=== PATIENT | female | born 1975 | race African-American/Black ===

== ENCOUNTER 2016-05-21 01:31 | Emergency (ER) | payer OTHER ==
[2016-05-21] MEDS ORDERED: Ketorolac Tromethamine 30 MG/ML VIAL ONE ×2 (02:13→02:40)
[2016-05-21] MEDS ORDERED: Promethazine HCl 25 MG/ML VIAL ONE (02:13)
[2016-05-21] MEDS ORDERED: diphenhydrAMINE HCl 50 MG/ML 1 ML VIAL ONE (02:13)
[2016-05-21] MEDS ORDERED: Insulin Regular 300 UNITS/3 ML VIAL ONE (02:31)
--- NOTE | 2016-05-21 03:29 | ERRECORD ---
[facility] EMERGENCY RECORD HPI HEADACHE (01:59 LLDO) CHIEF COMPLAINT: Patient presents for evaluation of headache, Patient presents for evaluation of migraine headache, same pattern and severity as her usual migraines. 5 days. started on left. n/v past 24 hours or more. photophobia. throbbing. HISTORIAN: History provided by patient. LOCATION: Symptoms are localized. QUALITY: Pain is dull in nature, described as aching, described as throbbing. SEVERITY: Maximum severity of symptoms severe, Currently symptoms are severe. TIME COURSE: Sudden onset of symptoms, There has been no change in the patient's symptoms over time, Symptoms are constant. ASSOCIATED WITH FEMALE: No associated symptoms, Denies any other complaints, ONLY ABOVE. EXACERBATED BY: Patient's condition exacerbated by eye opening, Patient's condition exacerbated by light. RELIEVED BY: Patient's condition relieved by dark room. RISK FACTORS: No subarachnoid hemorrhage risk factors, Subarachnoid hemorrahage risk factor analysis completed. ROS CONSTITUTIONAL: Historian reports fatigue, reports malaise. (02:02 LLDO) EYES: Historian reports photophobia. (02:02 LLDO) ENT: Negative ears, nose, throat review of systems, Historian denies epistaxis, denies rhinorrhea, denies sinus pain, denies sore throat. (02:04 LLDO) GI: Historian denies abdominal pain, reports anorexia, reports appetite changes, denies constipation, denies diarrhea, denies hematemesis, denies hematochezia, denies jaundice, denies melena, reports nausea, denies stool changes, reports vomiting. (02:02 LLDO) MUSCULOSKELETAL: Negative musculoskeletal review of systems, Historian denies arthralgias, denies back pain, denies injury, denies myalgias, denies neck pain. (02:04 LLDO) SKIN: Negative skin review of systems, Historian denies cellulitis, denies rash, denies skin changes, denies skin lesions. (02:04 LLDO) NEUROLOGIC: Historian denies confusion, denies dizziness, denies dysphasia, denies focal weakness, denies gait changes, reports headache, denies irritability, denies lethargy, denies mental status changes. (02:02 LLDO) HEMO/LYMPHATIC: Normal hematologic/lymphatic system review, Historian denies abnormal blood clotting, denies gum bleeding, denies petechiae. (02:04 LLDO) ALLERGIC/IMMUNOLOGIC: Normal allergy/immunologic system review, Historian denies eczema, denies environmental allergies, denies food allergies. (02:04 LLDO) PSYCHIATRIC: Negative psychiatric review of systems, Historian &a-1R&a+25V*p+0X*i0117L*c202B*c15G*c2P*p-0X&a-25V&a+1R Name: Shanna Rivera : 1975 F40 MedRec: [id number] AcctNum: [id number] Prepared: Christiano May 21, 2016 03:50 by Interface Page 1 of 4 pMD [facility] EMERGENCY RECORD denies alcohol abuse, denies anxiety, denies depression, denies drug abuse, denies hallucinations. (02:04 LLDO) NOTES: All systems reviewed, negative except as described above. (02:02 LLDO) PAST MEDICAL HISTORY MEDICAL HISTORY: Flu vaccine up to date, Tetanus immunization up to date, Pneumococcal vaccine not up to date, Notes: VERIFIED 03-07-16, Flu vaccine up to date, Tetanus immunization up to date, Pneumococcal vaccine not up to date, Past medical history includes history of diabetes, Type II, Past medical history includes neurological disease, migraine headaches, Past medical history includes history of diabetes, Type II, , Tetanus immunization up to date, Pneumococcal vaccine not up to date, Past medical history includes history of diabetes, Type II. VERIFIED 03-04-16. VERIFIED 03/18/16./no /2/16. VERIFIED 02/29/16. verified 05/10/16. reports no changes 05/21/16. (01:52 AGAN) FEMALE SURGICAL HISTORY: VERIFIED 03-07-16, Surgical history of hysterectomy, , Surgical history of section, Date of surgery 2002, Surgical history of hysterectomy, Date of surgery feb 18, 2015, Surgical history of tubal ligation, Date of surgery 2002, Patient has no surgical history, Surgical history of hysterectomy. VERIFIED 03/04/16. VERIFIED 03/18/16./no changes /03/22/16. VERIFIED 03/30/16. verified 05/10/16. reports no changes 05/21/16. (01:52 AGAN) PSYCHIATRIC HISTORY: DENIES BUT IS ALLEGIC TO PSYCH MEDICINES VERIFIED 03/30/16. (01:52 AGAN) SOCIAL HISTORY: Patient denies alcohol use, Patient denies drug use, Patient currently uses tobacco, smokes cigarettes, Patient smokes 1 pack per day, Social History includes VERIFIED 03-07-16, Patient denies alcohol use, Patient denies drug use, Patient currently uses tobacco, smokes cigarettes, daily, Patient smokes 1/2 packs per day, Patient denies alcohol use, Patient denies drug use, Patient currently uses tobacco, smokes cigarettes, Patient smokes 1/2 packs per day, Lives at home. VERIFIED 03/18/16./no changes/03/22/16. Reports no changes 05/21/16. (01:52 AGAN) NOTES: Nursing records reviewed, Agree with nursing records, Medication list reviewed. (02:04 LLDO) KNOWN ALLERGIES Compazine: Source: Patient Geodon: Source: Patient Imitrex: Source: Patient Reglan: Source: Patient Zofran oral: Source: Patient, - STOMACH CRAMPING CURRENT MEDICATIONS (01:41 AGAN) chwtipwjwg-ihkebrewkdeep-oofo: CAPSULE : Strength - 50 mg-325 mg-40 mg : ORAL Patient Dose: 1 tab(s) Oral every 4 hours prn. &a-1R&a+25V*p+0X*[id number]*c202B*c15G*c2P*p-0X&a-25V&a+1R Name: Shanna Rivera : 1975 F40 MedRec: [id number] AcctNum: [id number] Prepared: Christiano May 21, 2016 03:50 by Interface Page 2 of 4 pMD [facility] EMERGENCY RECORD VITAL SIGNS VITAL SIGNS: BP: 162/93, Pulse: 101, Resp: 20, Temp: 97.7 (Tympanic), Pain: 10 (Constant), O2 sat: 97% on Room Air, Time: 05/21/2016 01:35. (01:35 AGAN) BP: 140/75, Pulse: 99, Resp: 20, O2 sat: 97% on RA, Time: 05/21/2016 01:52. (01:52 AGAN) PHYSICAL EXAM CONSTITUTIONAL: Vital Signs Reviewed, Patient afebrile, Pulse normal, Blood pressure normal, Respiratory rate normal, Patient appears, uncomfortable, Patient appears, in severe pain distress, Patient alert and oriented to person, place and time, Nursing notes reviewed. (02:03 LLDO) HEAD: Head exam normal, Head exam included findings of head atraumatic, normocephalic. (02:04 LLDO) EYES: Eye exam included findings of eyelids normal to inspection, Pupils equally round and reactive to light, Extraocular muscles intact, Conjunctiva normal, Sclera normal, Fundoscopic exam normal. (02:03 LLDO) ENT: ENT exam normal, Ear exam normal, Nose exam normal. (02:04 LLDO) NECK: Neck exam included findings of normal range of motion, Trachea midline, Thyroid normal, no meningeal signs, no cervical adenopathy. (02:03 LLDO) RESPIRATORY CHEST: Respiratory exam included findings of no respiratory distress, Breath sounds clear, Chest exam included findings of chest movement symmetrical, Chest expansion equal, no tenderness. (02:03 LLDO) CARDIOVASCULAR: Cardiovascular exam included findings of heart rate regular rate and rhythm, Heart sounds normal. (02:03 LLDO) ABDOMEN FEMALE: Abdominal exam included findings of abdomen nontender, Bowel sounds normal, Liver normal, Spleen normal, no distension, no mass, no pulsatile masses, no peritoneal signs. (02:03 LLDO) BACK: Back exam normal, Back exam included findings of normal inspection, range of motion normal. (02:04 LLDO) UPPER EXTREMITY: Upper extremity exam normal, Upper extremity exam included findings of inspection normal, Range of motion normal. (02:04 LLDO) LOWER EXTREMITY: Lower extremity exam normal, Lower extremity exam included findings of inspection normal, Range of motion normal. (02:04 LLDO) NEURO: Sneads coma scale 15, Neuro exam findings include patient oriented to person, place and time, Speech normal, Gait normal, Memory normal, Cranial nerves intact, Deep tendon reflexes normal, no focal motor deficits, no focal sensory deficits, no cerebellar deficits, no nystagmus. (02:03 LLDO) SKIN: Skin exam normal, Skin exam included findings of skin warm, dry, and normal in color, no rash. (02:04 LLDO) &a-1R&a+25V*p+0X*q3236G*c202B*c15G*c2P*p-0X&a-25V&a+1R Name: Shanna Rivera : 1975 F40 MedRec: [id number] AcctNum: [id number] Prepared: Christiano May 21, 2016 03:50 by Interface Page 3 of 4 pMD [facility] EMERGENCY RECORD PSYCHIATRIC: Psychiatric exam normal, Psychiatric exam included findings of patient oriented to person place and time, Normal affect. (02:04 LLDO) MEDICATION ADMINISTRATION SUMMARY Drug Name: Toradol injection, Dose Ordered: 30 mg, Route: IV Push, Status: Given, Time: 02:35 05/21/2016, Drug Name: insulin regular pork, Dose Ordered: 6 units, Route: IV Push, Status: Given, Time: 02:35 05/21/2016, Drug Name: Phenergan injection, Dose Ordered: 50 mg, Route: IV Piggy Back, Status: Given, Time: 02:15 05/21/2016, Drug Name: Benadryl injection, Dose Ordered: 25 mg, Route: IV Push, Status: Given, Time: 02:10 05/21/2016, Drug Name: *sodium chloride 0.9 % intravenous, Dose Ordered: 1 L, Route: IV Fluid Infusion, Status: Given, Time: 02:10 05/21/2016, *Additional information available in notes, Detailed record available in Medication Service section. DOCTOR NOTES (03:19 LLDO) TEXT: feeling better and wants to go home and sleep. PROBLEM LIST No recorded problems DIAGNOSIS (03:20 LLDO) FINAL: PRIMARY: Migraine (unspecified). PRESCRIPTION (03:21 LLDO) Fioricet: TABLET : 50 mg-325 mg-40 mg : ORAL : Quantity: 2 Unit: tab(s) Route: ORAL Schedule: every 4 hours prn Dispense: 40 Unit: tab(s) May substitute. Refills: No Refills . NOTES: No Refills. DISPOSITION PATIENT: Disposition Type: Discharge, Disposition: *Discharge Home. (03:20 LLDO) Disposition Transport: Ambulatory, Condition: Good, Patient left the department. (03:47 AGAN) Brooks: GAURI=YIN Lane, Samir LLDO=MD Theresa, Codey &a-1R&a+25V*p+0X*[id number]*c202B*c15G*c2P*p-0X&a-25V&a+1R Name: Shanna Rivera : 1975 F40 MedRec: [id number] AcctNum: [id number] Prepared: Christiano May 21, 2016 03:50 by Interface Page 4 of 4 pMD MTDD
--- NOTE | 2016-05-21 03:35 | PICIS ---
[facility] EMERGENCY RECORD TRIAGE (FriMay 21, 2016 01:39 AGAN) TRIAGE NOTES: Headache, nausea, vomiting x 5 days. (FriMay 21, 2016 01:39 AGAN) PATIENT: NAME: Shanna Rivera, AGE: 40, GENDER: female, : Fri1975, TIME OF GREET: FriMay 21, 2016 01:32, PREFERRED LANGUAGE: Lao, ETHNICITY: Not or , HIGH ALERT: HIGH ALERT 3, FALL RISK: NO, ECODE BILLING MAP: [facility], SSN: [id number], Zip Code: [address], KG WEIGHT: 70.31, PHONE: CELL, , , PERSON ID: [id number], PCP: Dr. jw goode. (FriMay 21, 2016 01:39 AGAN) COMPLAINT: NAUSEA, MIGRAINE, DEHYDRATION. (FriMay 21, 2016 01:39 AGAN) ADMISSION: URGENCY: 4 Non Urgent, ADMISSION SOURCE: Home, TRANSPORT: CAR, BED: ED -05. (FriMay 21, 2016 01:39 AGAN) ASSESSMENT: Assessment: Ambulatory c/o headaches, nausea and vomiting x 5 days now, Symptoms began 5 days ago. (01:52 AGAN) PAIN: Patient complains of pain described as, on a scale 0-10 patient rates pain as 10, Location Head...did not mention any other parts of the body, Pain is constant. (01:52 AGAN) PROVIDERS: TRIAGE NURSE: Samir Lane RN. (FriMay 21, 2016 01:39 AGAN) VITAL SIGNS: BP 162/93, Pulse 101, Resp 20, Temp 97.7, (Tympanic), Pain 10, (Constant), O2 Sat 97%, on Room Air, Time 05/21/2016 01:35. (01:35 AGAN) PREVIOUS VISIT ALLERGIES: Compazine, Geodon, Imitrex, Reglan, Zofran oral. (FriMay 21, 2016 01:39 AGAN) Compazine, Geodon, Imitrex, Reglan, Zofran oral. (01:52 AGAN) KNOWN ALLERGIES Compazine: Source: Patient Geodon: Source: Patient Imitrex: Source: Patient Reglan: Source: Patient Zofran oral: Source: Patient, - STOMACH CRAMPING CURRENT MEDICATIONS (01:41 AGAN) cchshyzddg-yykulqhxbyqhf-zekw: CAPSULE : Strength - 50 mg-325 mg-40 mg : ORAL Patient Dose: 1 tab(s) Oral every 4 hours prn. VITAL SIGNS VITAL SIGNS: BP: 162/93, Pulse: 101, Resp: 20, Temp: 97.7 (Tympanic), Pain: 10 (Constant), O2 sat: 97% on Room Air, Time: 05/21/2016 01:35. (01:35 AGAN) BP: 140/75, Pulse: 99, Resp: 20, O2 sat: 97% on RA, Time: 05/21/2016 01:52. (01:52 AGAN) NURSING ASSESSMENT: HEADACHE (01:39 AGAN) &a-1R&a+25V*p+0X*h3598W*c202B*c15G*c2P*p-0X&a-25V&a+1R Name: Shanna Rivera : 1975 F40 MedRec: [id number] AcctNum: [id number] Prepared: Christiano May 21, 2016 03:56 by Interface Page 1 of 11 pMD [facility] EMERGENCY RECORD CONSTITUTIONAL: Patient arrives ambulatory, Gait steady, History obtained from patient, Patient appears comfortable, Patient cooperative, Patient alert, Oriented to person, place and time, Skin warm, Skin dry, Skin normal in color, Mucous membranes pink, Mucous membranes moist, Patient, poorly groomed, Patient complains of headaches, nausea, vomiting x 5 days. PAIN: pressure pain, head...coming from the left side and going to the right side, Onset of pain 5 days ago, on a scale 0-10 patient rates pain as 10. HEADACHE: history of migraines, Associated with nausea, Associated with vomiting, Associated with photophobia. NEURO: Pupils equally round and reactive to light, Associated with nausea, Associated with vomiting, history, reported only. ENT: Ear assessment findings include ear normal to inspection, Nasal assessment findings include nose normal to inspection, Associated with headache. SAFETY: Side rails up, Cart/Stretcher in lowest position, Family at bedside, Call light within reach, Hospital ID band on. NURSING PROCEDURE: DISCHARGE NOTE (03:25 AGAN) DISCHARGE: Patient discharged to home, ambulating without assistance, family driving, accompanied by //partner, Summary of Care printed/ provided, Patient requested and was provided an electronic copy of Discharge Instructions, Transition record given to patient, Discharge instructions given to patient, Prescriptions given and instructions on side effects given, Name of prescription(s) given: Fioricet, Above person(s) verbalized understanding of discharge instructions and follow-up care, Patient discharged by, Dr. Cardenas, Patient instructed not to drive home, Patient treated and evaluated by physician. BELONGINGS: Belongings remain with patient, Valuables remain with patient. NURSING PROCEDURE: IV PATIENT IDENITIFIER: Patient actively involved in identification process, Patient's identity verified by patient stating name, Patient's identity verified by patient stating date. (02:00 AGAN) IV SITE 1: IV therapy indicated for hydration, IV therapy indicated for medication administration, IV established, to the right hand, using a 22 gauge catheter, in one attempt, Saline lock established. (02:00 AGAN) FOLLOW-UP SITE 1: After procedure, 2x2 dressing applied, IV discontinued, due to patient being discharged, catheter intact. (03:25 AGAN) NURSING PROCEDURE: NURSE NOTES NURSES NOTES: Patient in no apparent distress, Warm blanket given &a-1R&a+25V*p+0X*p7514O*c202B*c15G*c2P*p-0X&a-25V&a+1R Name: Shanna Rivera : 1975 F40 MedRec: [id number] AcctNum: [id number] Prepared: Christiano May 21, 2016 03:56 by Interface Page 2 of 11 pMD [facility] EMERGENCY RECORD to patient, Patient examined by physician. (01:52 AGAN) Patient in no apparent distress, Patient states decreased pain, Notes: ambulating ad juan r and verbalizing she feeling good now... removed all her monitors...see imaged vs sheet. (03:00 AGAN) VITAL SIGNS: BP: 140, / 75, Pulse: 99, Resp: 20, O2 sat: 97%, on: RA. (01:52 AGAN) ORDER DETAILS Order Name: BLOOD GLUCOSE MONITOR, Status: Done, Time: 02:42 05/21/2016, User: GAURI, - Ordered for: MD Cardenas Lloyd, - Entered by: MD Cardenas Lloyd - nas May 21, 2016 02:08, - Quantity: 1, Order Name: ERRT Oxygen Usage ER, Status: Active, Time: 01:55 05/21/2016, User: BRYAN, - Ordered for: MD Cardenas Lloyd, - Entered by: MD Cardenas Lloyd - nas May 21, 2016 01:55, - Quantity: 1, Order Name: SALINE LOCK, Status: Done, Time: 02:42 05/21/2016, User: GAURI, - Ordered for: MD Cardenas Lloyd, - Entered by: MD Cardenas Lloyd - nas May 21, 2016 01:55, - Quantity: 1. MEDICATION ADMINISTRATION SUMMARY Drug Name: Toradol injection, Dose Ordered: 30 mg, Route: IV Push, Status: Given, Time: 02:35 05/21/2016, Drug Name: insulin regular pork, Dose Ordered: 6 units, Route: IV Push, Status: Given, Time: 02:35 05/21/2016, Drug Name: Phenergan injection, Dose Ordered: 50 mg, Route: IV Piggy Back, Status: Given, Time: 02:15 05/21/2016, Drug Name: Benadryl injection, Dose Ordered: 25 mg, Route: IV Push, Status: Given, Time: 02:10 05/21/2016, Drug Name: *sodium chloride 0.9 % intravenous, Dose Ordered: 1 L, Route: IV Fluid Infusion, Status: Given, Time: 02:10 05/21/2016, *Additional information available in notes, Detailed record available in Medication Service section. MEDICATION SERVICE Benadryl injection: Order: Benadryl injection (diphenhydramine HCl) - Dose: 25 mg : IV Push Schedule: Now Ordered by: Codey Cardenas MD Entered by: Codey Cardenas MD FriMay 21, 2016 01:58 , Acknowledged by: Samir Lane RN FriMay 21, 2016 02:10 Documented as given by: Samir Lane RN FriMay 21, 2016 02:10 Patient, Medication, Dose, Route and Time verified prior to administration. &a-1R&a+25V*p+0X*l1203S*c202B*c15G*c2P*p-0X&a-25V&a+1R Name: Shanna Rivera : 1975 F40 MedRec: [id number] AcctNum: [id number] Prepared: FriMay 21, 2016 03:56 by Interface Page 3 of 11 pMD [facility] EMERGENCY RECORD Amount given: 25 mg, IV SITE #1 IVP, initial medication, Slowly, Patient tolerated procedure well. : Follow Up : Response assessment performed, No signs or symptoms of allergic reaction noted, Decreased symptoms, _IV SITE #1:_. (02:15 AGAN) insulin regular pork: Order: insulin regular pork (insulin,pork) - Dose: 6 units : IV Push Schedule: Now Ordered by: Codey Cardenas MD Entered by: Codey Cardenas MD May 21, 2016 02:15 , Acknowledged by: Samir Lane RN May 21, 2016 02:25 Documented as given by: Samir Lane RN [facility] May 21, 2016 02:35 Patient, Medication, Dose, Route and Time verified prior to administration. Amount given: 6 units, IV SITE #1 IVP, initial medication, Slowly, Catheter placement confirmed via flush prior to administration, IV site without signs or symptoms of infiltration during medication administration, No swelling during administration, No drainage during administration, IV flushed after administration, Correct patient, time, route, dose and medication confirmed prior to administration, Patient advised of actions and side-effects prior to administration, Allergies confirmed and medications reviewed prior to administration, Patient tolerated procedure well, Co-signed by: Rufino Harris RN May 21, 2016 02:44, Co-signed by: Rufino Harris RN [facility] May 21, 2016 02:44, Co-signed by: Rufino Harris RN [facility] May 21, 2016 02:44, Co-signed by: Rufino Harris RN [facility] May 21, 2016 02:44, Co-signed by: Rufino Harris RN [facility] May 21, 2016 02:44, Co-signed by: Rufino Harris RN [facility] May 21, 2016 02:44, Co-signed by: YIN Alatorre May 21, 2016 02:44, Co-signed by: YIN Alatorre May 21, 2016 02:44, Co-signed by: YIN Alatorre May 21, 2016 02:44. : Follow Up : Response assessment performed, No signs or symptoms of allergic reaction noted, _IV SITE #1:_, Ambulatory no acute distress and wanting to go home now. (03:25 AGAN) insulin regular pork: Order: insulin regular pork (insulin,pork) - Dose: 6 units : IV Push Schedule: Now Ordered by: Codey Cardensa MD Entered by: MD Christiano Lazaro May 21, 2016 02:15 , Acknowledged by: Samir Lane RN nas May 21, 2016 02:25 Documented as given by: YIN Larson May 21, 2016 02:35 Patient, Medication, Dose, Route and Time verified prior to administration. Amount given: 6 units, IV SITE #1 IVP, initial medication, Slowly, Catheter placement confirmed via flush prior to administration, IV site without signs or symptoms of infiltration during medication administration, No swelling during administration, No drainage during administration, IV flushed after administration, Correct patient, time, route, dose and medication confirmed prior to administration, &a-1R&a+25V*p+0X*w1729Q*c202B*c15G*c2P*p-0X&a-25V&a+1R Name: Shanna Rivera : 1975 F40 MedRec: [id number] AcctNum: [id number] Prepared: FriMay 21, 2016 03:56 by Interface Page 4 of 11 pMD [facility] EMERGENCY RECORD Patient advised of actions and side-effects prior to administration, Allergies confirmed and medications reviewed prior to administration, Patient tolerated procedure well, Co-signed by: YIN Alatorre May 21, 2016 02:44, Co-signed by: YIN Alatorre May 21, 2016 02:44, Co-signed by: YIN Alatorre May 21, 2016 02:44, Co-signed by: YIN Alatorre May 21, 2016 02:44, Co-signed by: Rufino Harris RN nas May 21, 2016 02:44, Co-signed by: Rufino Harris RN nas May 21, 2016 02:44, Co-signed by: Rufino Harris RN [facility] May 21, 2016 02:44, Co-signed by: Rufino Harris RN nas May 21, 2016 02:44, Co-signed by: Rufino Harris RN nas May 21, 2016 02:45. insulin regular pork: Order: insulin regular pork (insulin,pork) - Dose: 6 units : IV Push Schedule: Now Ordered by: Codey Cardenas MD Entered by: Codey Cardenas MD [facility] May 21, 2016 02:15 , Acknowledged by: Samir Lane RN May 21, 2016 02:25 Documented as given by: Samir Lane RN [facility] May 21, 2016 02:35 Patient, Medication, Dose, Route and Time verified prior to administration. Amount given: 6 units, IV SITE #1 IVP, initial medication, Slowly, Catheter placement confirmed via flush prior to administration, IV site without signs or symptoms of infiltration during medication administration, No swelling during administration, No drainage during administration, IV flushed after administration, Correct patient, time, route, dose and medication confirmed prior to administration, Patient advised of actions and side-effects prior to administration, Allergies confirmed and medications reviewed prior to administration, Patient tolerated procedure well, Co-signed by: uRfino Harris RN [facility] May 21, 2016 02:44, Co-signed by: Rufino Harris RN [facility] May 21, 2016 02:44, Co-signed by: Rufino Harris RN [facility] May 21, 2016 02:44, Co-signed by: Rufino Harris RN nas May 21, 2016 02:44, Co-signed by: Rufino Harris RN nas May 21, 2016 02:44, Co-signed by: Rufino Harris RN [facility] May 21, 2016 02:44, Co-signed by: Rufino Harris RN nas May 21, 2016 02:44, Co-signed by: Rufino Harris RN nas May 21, 2016 02:44, Co-signed by: Rufino Harris RN [facility] May 21, 2016 02:44, Co-signed by: Rufino Harris RN nas May 21, 2016 02:44, Co-signed by: Rufino Harris RN nas May 21, 2016 02:44. insulin regular pork: Order: insulin regular pork (insulin,pork) - Dose: 6 units : IV Push Schedule: Now Ordered by: Codey Cardenas MD Entered by: Codey Carednas MD nas May 21, 2016 02:15 , Acknowledged by: Samir Lane RN [facility] May 21, 2016 02:25 Documented as given by: Samir Lane RN nas May 21, 2016 02:35 Patient, Medication, Dose, Route and Time verified prior to administration. &a-1R&a+25V*p+0X*a3739Q*c202B*c15G*c2P*p-0X&a-25V&a+1R Name: Shanna Rivera : 1975 F40 MedRec: [id number] AcctNum: [id number] Prepared: FriMay 21, 2016 03:56 by Interface Page 5 of 11 pMD [facility] EMERGENCY RECORD Amount given: 6 units, IV SITE #1 IVP, initial medication, Slowly, Catheter placement confirmed via flush prior to administration, IV site without signs or symptoms of infiltration during medication administration, No swelling during administration, No drainage during administration, IV flushed after administration, Correct patient, time, route, dose and medication confirmed prior to administration, Patient advised of actions and side-effects prior to administration, Allergies confirmed and medications reviewed prior to administration, Patient tolerated procedure well, Co-signed by: Rufino Harris RN nas May 21, 2016 02:44, Co-signed by: Rufino Harris RN nas May 21, 2016 02:44, Co-signed by: Rufino Harris RN nas May 21, 2016 02:44, Co-signed by: Rufino aHrris RN nas May 21, 2016 02:44, Co-signed by: YIN Alatorre May 21, 2016 02:44, Co-signed by: YIN Alatorre May 21, 2016 02:44, Co-signed by: Rufino Harris RN nas May 21, 2016 02:44, Co-signed by: Rufino Harris RN May 21, 2016 02:44, Co-signed by: Rufino Harris RN May 21, 2016 02:44, Co-signed by: Rufino Harris RN May 21, 2016 02:44, Co-signed by: Rufino Harris RN [facility] May 21, 2016 02:44. Phenergan injection: Order: Phenergan injection (promethazine HCl) - Dose: 50 mg : IV Piggy Back POTENTIAL ALLERGY REACTION: 'Compazine [prochlorperazine/prochlorperazine edisylate]' - Reviewed with patient, pt says can safely take this medicine Schedule: Now Ordered by: Codey Cardenas MD Entered by: Codey Cardenas MD [facility] May 21, 2016 01:58 , Acknowledged by: Samir Lane RN [facility] May 21, 2016 02:10 Documented as given by: Samir Lane RN [facility] May 21, 2016 02:15 Patient, Medication, Dose, Route and Time verified prior to administration. Amount given: 50 mg, IV SITE #1 IVPB or drip, initial infusion, IVPB mixed in: ordered 1L NS IV bolus, via primary tubing, on an IV pump, Awake and alert- acceptable, Catheter placement confirmed via flush prior to administration, IV site without signs or symptoms of infiltration during medication administration, No swelling during administration, No drainage during administration, IV flushed after administration, Correct patient, time, route, dose and medication confirmed prior to administration, Patient advised of actions and side-effects prior to administration, Allergies confirmed and medications reviewed prior to administration, Patient tolerated procedure well. sodium chloride 0.9 % intravenous: Order: sodium chloride 0.9 % intravenous (0.9 % sodium chloride) - Dose: 1 L : IV Fluid Infusion Notes: (Bolus) after bolus, lock Ordered by: Codey Cardenas MD Entered by: Codey Cardenas MD [facility] May 21, 2016 01:56 , Acknowledged by: Samir Lane RN [facility] May 21, 2016 02:10 &a-1R&a+25V*p+0X*w3117T*c202B*c15G*c2P*p-0X&a-25V&a+1R Name: Shanna Rivera: 1975 F40 MedRec: [id number] AcctNum: [id number] Prepared: FriMay 21, 2016 03:56 by Interface Page 6 of 11 pMD [facility] EMERGENCY RECORD Documented as given by: Samir Lane RN FriMay 21, 2016 02:10 Patient, Medication, Dose, Route and Time verified prior to administration. Amount given: 1000 ml, IV SITE #1 IV fluids established for hydration, IV SITE #1 into right hand, IV SITE #1 1st bag hung, amount 1 Liter hung, IV SITE #1 bolus of 1000 ml established, via primary tubing, IV SITE #1 on IV pump, Awake and alert- acceptable, Patient tolerated procedure well, Patient in position of comfort, Side rails up, Cart in lowest position, Family at bedside. : Follow Up : Response assessment performed, No signs or symptoms of allergic reaction noted, Decreased pain, _IV SITE #1:_, IV fluid infusion discontinued, on FriMay 21, 2016 03:25, Total fluid hydration time IV site 1 1 hour, 15 minutes, ., Total amount infused: 1000 ml, IV Discontinued with catheter intact. (03:25 AGAN) Toradol injection: Order: Toradol injection (ketorolac tromethamine) - Dose: 30 mg : IV Push Schedule: Now Ordered by: Codey Cardenas MD Entered by: Codey Cardenas MD FriMay 21, 2016 01:58 , Acknowledged by: Samir Lane RN FriMay 21, 2016 02:10 Documented as given by: Samir Lane RN FriMay 21, 2016 02:35 Patient, Medication, Dose, Route and Time verified prior to administration. Amount given: 30 mg, IV SITE #1 IVP, initial medication, Slowly. : Follow Up : Response assessment performed, No signs or symptoms of allergic reaction noted, Decreased pain, Decreased symptoms, _IV SITE #1:_. (03:00 AGAN) HPI HEADACHE (01:59 LLDO) CHIEF COMPLAINT: Patient presents for evaluation of headache, Patient presents for evaluation of migraine headache, same pattern and severity as her usual migraines. 5 days. started on left. n/v past 24 hours or more. photophobia. throbbing. HISTORIAN: History provided by patient. LOCATION: Symptoms are localized. QUALITY: Pain is dull in nature, described as aching, described as throbbing. SEVERITY: Maximum severity of symptoms severe, Currently symptoms are severe. TIME COURSE: Sudden onset of symptoms, There has been no change in the patient's symptoms over time, Symptoms are constant. ASSOCIATED WITH FEMALE: No associated symptoms, Denies any other complaints, ONLY ABOVE. EXACERBATED BY: Patient's condition exacerbated by eye opening, Patient's condition exacerbated by light. RELIEVED BY: Patient's condition relieved by dark room. RISK FACTORS: No subarachnoid hemorrhage risk factors, Subarachnoid hemorrahage risk factor analysis completed. &a-1R&a+25V*p+0X*d9352U*c202B*c15G*c2P*p-0X&a-25V&a+1R Name: Shanna Rivera : 1975 F40 MedRec: [id number] AcctNum: [id number] Prepared: Christiano May 21, 2016 03:56 by Interface Page 7 of 11 pMD [facility] EMERGENCY RECORD ROS CONSTITUTIONAL: Historian reports fatigue, reports malaise. (02:02 LLDO) EYES: Historian reports photophobia. (02:02 LLDO) ENT: Negative ears, nose, throat review of systems, Historian denies epistaxis, denies rhinorrhea, denies sinus pain, denies sore throat. (02:04 LLDO) GI: Historian denies abdominal pain, reports anorexia, reports appetite changes, denies constipation, denies diarrhea, denies hematemesis, denies hematochezia, denies jaundice, denies melena, reports nausea, denies stool changes, reports vomiting. (02:02 LLDO) MUSCULOSKELETAL: Negative musculoskeletal review of systems, Historian denies arthralgias, denies back pain, denies injury, denies myalgias, denies neck pain. (02:04 LLDO) SKIN: Negative skin review of systems, Historian denies cellulitis, denies rash, denies skin changes, denies skin lesions. (02:04 LLDO) NEUROLOGIC: Historian denies confusion, denies dizziness, denies dysphasia, denies focal weakness, denies gait changes, reports headache, denies irritability, denies lethargy, denies mental status changes. (02:02 LLDO) HEMO/LYMPHATIC: Normal hematologic/lymphatic system review, Historian denies abnormal blood clotting, denies gum bleeding, denies petechiae. (02:04 LLDO) ALLERGIC/IMMUNOLOGIC: Normal allergy/immunologic system review, Historian denies eczema, denies environmental allergies, denies food allergies. (02:04 LLDO) PSYCHIATRIC: Negative psychiatric review of systems, Historian denies alcohol abuse, denies anxiety, denies depression, denies drug abuse, denies hallucinations. (02:04 LLDO) NOTES: All systems reviewed, negative except as described above. (02:02 LLDO) PAST MEDICAL HISTORY MEDICAL HISTORY: Flu vaccine up to date, Tetanus immunization up to date, Pneumococcal vaccine not up to date, Notes: VERIFIED 03-07-16, Flu vaccine up to date, Tetanus immunization up to date, Pneumococcal vaccine not up to date, Past medical history includes history of diabetes, Type II, Past medical history includes neurological disease, migraine headaches, Past medical history includes history of diabetes, Type II, , Tetanus immunization up to date, Pneumococcal vaccine not up to date, Past medical history includes history of diabetes, Type II. VERIFIED 03-04-16. VERIFIED 03/18/16./no omnavlt45/2/16. VERIFIED 02/29/16. verified 05/10/16. reports no changes 05/21/16. (01:52 AGAN) FEMALE SURGICAL HISTORY: VERIFIED 03-07-16, Surgical history of hysterectomy, , Surgical history of section, Date of surgery 2002, Surgical history of hysterectomy, Date of surgery feb 18, 2015, Surgical history of tubal ligation, Date of surgery &a-1R&a+25V*p+0X*x8339O*c202B*c15G*c2P*p-0X&a-25V&a+1R Name: Shanna Rivera : 1975 F40 MedRec: [id number] AcctNum: [id number] Prepared: Christiano May 21, 2016 03:56 by Interface Page 8 of 11 pMD [facility] EMERGENCY RECORD 2002, Patient has no surgical history, Surgical history of hysterectomy. VERIFIED 03/04/16. VERIFIED 03/18/16./no changes /03/22/16. VERIFIED 03/30/16. verified 05/10/16. reports no changes 05/21/16. (01:52 AGAN) PSYCHIATRIC HISTORY: DENIES BUT IS ALLEGIC TO PSYCH MEDICINES VERIFIED 03/30/16. (01:52 AGAN) SOCIAL HISTORY: Patient denies alcohol use, Patient denies drug use, Patient currently uses tobacco, smokes cigarettes, Patient smokes 1 pack per day, Social History includes VERIFIED 03-07-16, Patient denies alcohol use, Patient denies drug use, Patient currently uses tobacco, smokes cigarettes, daily, Patient smokes 1/2 packs per day, Patient denies alcohol use, Patient denies drug use, Patient currently uses tobacco, smokes cigarettes, Patient smokes 1/2 packs per day, Lives at home. VERIFIED 03/18/16./no changes/03/22/16. Reports no changes 05/21/16. (01:52 AGAN) NOTES: Nursing records reviewed, Agree with nursing records, Medication list reviewed. (02:04 LLDO) PHYSICAL EXAM CONSTITUTIONAL: Vital Signs Reviewed, Patient afebrile, Pulse normal, Blood pressure normal, Respiratory rate normal, Patient appears, uncomfortable, Patient appears, in severe pain distress, Patient alert and oriented to person, place and time, Nursing notes reviewed. (02:03 LLDO) HEAD: Head exam normal, Head exam included findings of head atraumatic, normocephalic. (02:04 LLDO) EYES: Eye exam included findings of eyelids normal to inspection, Pupils equally round and reactive to light, Extraocular muscles intact, Conjunctiva normal, Sclera normal, Fundoscopic exam normal. (02:03 LLDO) ENT: ENT exam normal, Ear exam normal, Nose exam normal. (02:04 LLDO) NECK: Neck exam included findings of normal range of motion, Trachea midline, Thyroid normal, no meningeal signs, no cervical adenopathy. (02:03 LLDO) RESPIRATORY CHEST: Respiratory exam included findings of no respiratory distress, Breath sounds clear, Chest exam included findings of chest movement symmetrical, Chest expansion equal, no tenderness. (02:03 LLDO) CARDIOVASCULAR: Cardiovascular exam included findings of heart rate regular rate and rhythm, Heart sounds normal. (02:03 LLDO) ABDOMEN FEMALE: Abdominal exam included findings of abdomen nontender, Bowel sounds normal, Liver normal, Spleen normal, no distension, no mass, no pulsatile masses, no peritoneal signs. (02:03 LLDO) BACK: Back exam normal, Back exam included findings of normal inspection, range of motion normal. (02:04 LLDO) UPPER EXTREMITY: Upper extremity exam normal, Upper extremity exam included findings of inspection normal, Range of motion normal. (02:04 LLDO) &a-1R&a+25V*p+0X*k6029F*c202B*c15G*c2P*p-0X&a-25V&a+1R Name: Shanna Rivera : 1975 F40 MedRec: [id number] AcctNum: [id number] Prepared: Christiano May 21, 2016 03:56 by Interface Page 9 of 11 pMD [facility] EMERGENCY RECORD LOWER EXTREMITY: Lower extremity exam normal, Lower extremity exam included findings of inspection normal, Range of motion normal. (02:04 LLDO) NEURO: [place] coma scale 15, Neuro exam findings include patient oriented to person, place and time, Speech normal, Gait normal, Memory normal, Cranial nerves intact, Deep tendon reflexes normal, no focal motor deficits, no focal sensory deficits, no cerebellar deficits, no nystagmus. (02:03 LLDO) SKIN: Skin exam normal, Skin exam included findings of skin warm, dry, and normal in color, no rash. (02:04 LLDO) PSYCHIATRIC: Psychiatric exam normal, Psychiatric exam included findings of patient oriented to person place and time, Normal affect. (02:04 LLDO) EVENTS TRANSFER: Triage to Emergency Main ED -05. (01:39 AGAN) Removed from Emergency Main ED -05. (03:47 AGAN) DOCTOR NOTES (03:19 LLDO) TEXT: feeling better and wants to go home and sleep. PROBLEM LIST No recorded problems DIAGNOSIS (03:20 LLDO) FINAL: PRIMARY: Migraine (unspecified). DISPOSITION PATIENT: Disposition Type: Discharge, Disposition: *Discharge Home. (03:20 LLDO) Disposition Transport: Ambulatory, Condition: Good, Patient left the department. (03:47 AGAN) INSTRUCTION (03:20 LLDO) DISCHARGE: MIGRAINE HEADACHE. FOLLOWUP: Follow up with Primary Care Physician as scheduled. SPECIAL: Follow-up with your PCP. PRESCRIPTION (03:21 LLDO) Fioricet: TABLET : 50 mg-325 mg-40 mg : ORAL : Quantity: 2 Unit: tab(s) Route: ORAL Schedule: every 4 hours prn Dispense: 40 Unit: tab(s) May substitute. Refills: No Refills . NOTES: No Refills. IMAGING (03:48 AGAN) *DISCHARGE INSTRUCTIONS RECEIPT: Image captured from scanner. *SUPPLY CHARGE SHEET: Image captured from scanner. VITAL SIGNS: Image captured from scanner. &a-1R&a+25V*p+0X*q2966L*c202B*c15G*c2P*p-0X&a-25V&a+1R Name: Shanna Rivera : 1975 [facility] MedRec: [id number] AcctNum: [id number] Prepared: FriMay 21, 2016 03:56 by Interface Page 10 of 11 D [facility] EMERGENCY RECORD ADMIN (03:22 LLDO) DIGITAL SIGNATURE: MD Cardenas Lloyd. Brooks: AGAN=YIN Lane, Samir LLDO=MD Cardenas Lloyd &a-1R&a+25V*p+0X*x1229Y*c202B*c15G*c2P*p-0X&a-25V&a+1R Name: Shanna Rivera : 1975 1 MedRec: [id number] AcctNum: [id number] Prepared: FriMay 21, 2016 03:56 by Interface Page 11 of 11 D [facility] MEDICATION RECONCILIATION You were seen in the Emergency Department on: FriMay 21, 2016 KNOWN ALLERGIES Compazine: Source: Patient Geodon: Source: Patient Imitrex: Source: Patient Reglan: Source: Patient Zofran oral: Source: Patient, - STOMACH CRAMPING MEDICATIONS GIVEN WHILE IN THE EMERGENCY DEPARTMENT sodium chloride 0.9 % intravenous (0.9 % sodium chloride) - Dose: 1 liter(s) : IV Fluid Infusion Phenergan injection (promethazine HCl) - Dose: 50 milligram(s) : IV Piggy Back Toradol injection (ketorolac tromethamine) - Dose: 30 milligram(s) : IV Push Benadryl injection (diphenhydramine HCl) - Dose: 25 milligram(s) : IV Push insulin regular pork (insulin,pork) - Dose: 6 unit(s) : IV Push HOME MEDICATIONS CONTINUE PRESCRIBED feojruhgnj-[id number] : CAPSULE : Strength - 50 mg-325 mg-40 mg : ORAL Continue as prescribed Patient had been takin tab(s) Oral every 4 hours prn. Notes from the emergency department Reviewed with family Reviewed with patient Reviewed with family Reviewed with patient PRESCRIPTIONS (1) &a-1R&a+25V*p+0X*k4677F*c202B*c15G*c2P*p-0X&a-25V&a+1R Name: Shanna Rivera : 1975 F40 MedRec: [id number] AcctNum: [id number] Prepared: Christiano May 21, 2016 03:56 by Interface pMJovan BECK
[2016-05-21] MEDS ORDERED: Sodium Chloride 0.9% 1,000 ML BAG ONE (10:36)
== END 2016-05-21 03:25 | disposition home or self-care (01) ==
LOC: MADERS 01:31
DX: G43.909 Migraine, unspecified, not intractable, without status migrainosus (principal); E11.9 Type 2 diabetes mellitus without complications; F17.210 Nicotine dependence, cigarettes, uncomplicated
CPT/HCPCS: 36416; 96365; 96375; J1200; J1815; J1885; J2550; J7050

== ENCOUNTER 2016-06-21 14:48 | Emergency (ER) | payer MEDICAID, OTHER, SELFPAY | END 2016-06-21 16:03 | disposition home or self-care (01) | LOC: MADERS 14:48 | DX: G43.909 Migraine, unspecified, not intractable, without status migrainosus (principal); E11.9 Type 2 diabetes mellitus without complications; F17.210 Nicotine dependence, cigarettes, uncomplicated; Z79.84 Long term (current) use of oral hypoglycemic drugs | CPT/HCPCS: 99283 ==

== ENCOUNTER 2016-06-27 00:59 | Emergency (ER) | payer MEDICAID, SELFPAY ==
[2016-06-27] MEDS ORDERED: Ketorolac Tromethamine 30 MG/ML VIAL ONE (02:08)
[2016-06-27] MEDS ORDERED: diphenhydrAMINE HCl 50 MG/ML 1 ML VIAL ONE ×2 (02:08)
[2016-06-27] MEDS ORDERED: Promethazine HCl 25 MG/ML VIAL ONE (02:08)
[2016-06-27] MEDS ORDERED: Sodium Chloride 0.9% 1,000 ML BAG ONE (07:37)
== END 2016-06-27 03:34 | disposition home or self-care (01) ==
LOC: MADERS 00:59
DX: G43.909 Migraine, unspecified, not intractable, without status migrainosus (principal); E11.9 Type 2 diabetes mellitus without complications; F17.210 Nicotine dependence, cigarettes, uncomplicated; Z79.84 Long term (current) use of oral hypoglycemic drugs
CPT/HCPCS: 36416; 96361; 96374; 96375; J1200; J1885; J2550; J7050

== ENCOUNTER 2016-07-17 07:49 | Emergency (ER) | payer MEDICAID, SELFPAY ==
[2016-07-17] MEDS ORDERED: Famotidine 20 MG TAB ONE (08:06)
== END 2016-07-17 08:33 | disposition home or self-care (01) ==
LOC: MADERS 07:49
DX: E11.65 Type 2 diabetes mellitus with hyperglycemia (principal); G43.909 Migraine, unspecified, not intractable, without status migrainosus; F17.210 Nicotine dependence, cigarettes, uncomplicated; Z79.84 Long term (current) use of oral hypoglycemic drugs
CPT/HCPCS: 36416; 99284

== ENCOUNTER 2016-07-27 00:03 | Emergency (ER) | payer MEDICAID, SELFPAY | END 2016-07-27 00:15 | disposition left against medical advice (07) | LOC: MADERS 00:03 | DX: Z53.21 Procedure and treatment not carried out due to patient leaving prior to being seen by health care provider (principal) ==

== ENCOUNTER 2016-07-29 00:27 | Emergency (ER) | payer MEDICAID ==
[2016-07-29] MEDS ORDERED: Promethazine HCl 25 MG/ML VIAL ONE (01:03)
[2016-07-29] MEDS ORDERED: diphenhydrAMINE HCl 50 MG/ML 1 ML VIAL ONE (01:03)
[2016-07-29] MEDS ORDERED: Ketorolac Tromethamine 30 MG/ML VIAL ONE (01:03)
[2016-07-29] MEDS ORDERED: Insulin Regular 300 UNITS/3 ML VIAL ONE (01:06)
[2016-07-29 01:07] LABS: #Basophils 0.1 thou/uL (0.0-0.2); #Eosinphils 0.1 thou/uL (0.0-0.7); #Lymphocytes 1.5 thou/uL (1.20-3.40); #Monocytes 0.2 thou/uL (0.11-0.59); #Neutrophils 3.4 thou/uL (1.40-6.50); %Basophils 1.6 % (0.0-1.0); %Eosinophils 1.5 % (0.0-10.0); %Lymphocytes 28.8 % (21.0-51.0); %Monocytes 4.2 % (0.0-10.0); %Neutrophils 63.9 % (42.0-75.0); Mean Corpuscular Hemoglobin 29.8 pg (27.0-31.0); Mean Corpuscular Volume 90.3 fl (81.0-99.0); Mean Platelet Volume 6.8 fL (7.4-10.4); Platelet Count 271 thou/uL (130-400); RBC Distribution Width 13.3 % (11.5-14.5); Red Blood Cell (RBC) Count 4.71 mill/uL (4.20-5.40); White Blood Cell (WBC) Count 5.3 thou/uL (4.8-10.8)
[2016-07-29 01:25] LABS: ALT (SGPT) 12 U/L (0-55); AST (SGOT) 7 U/L (5-34); Albumin 3.6 g/dL (3.5-5.0); Alkaline Phosphatase 112 U/L (40-150); Anion Gap 14 mmol/L (10-20); BUN (Urea Nitrogen) 9 mg/dL (7.0-18.7); Bilirubin, Total Less than 0.3 mg/dL (0.2-1.2); Calc. Creatinine Clearance 0 mL/min (70-130); Carbon Dioxide 24 mmol/L (22-29); Chloride 101 mmol/L (98-107); Estimated GFR-MDRD Greater than 90; Globulin 2.8 g/dL (2.4-3.5); Glucose 445 mg/dL (70-105); Protein, Total 6.4 g/dL (6.0-8.3); Sodium 135 mmol/L (136-145)
[2016-07-29] MEDS ORDERED: Sodium Chloride 0.9% 1,000 ML BAG ONE (07:43)
== END 2016-07-29 01:52 | disposition home or self-care (01) ==
LOC: MADERS 00:27
DX: G43.909 Migraine, unspecified, not intractable, without status migrainosus (principal); E10.65 Type 1 diabetes mellitus with hyperglycemia
CPT/HCPCS: 36416; 80053; 85025; 86140; 96361; 96374; 96375; J1200; J1815; J1885; J2550; J7050

== ENCOUNTER 2016-08-07 23:41 | Emergency (ER) | payer MEDICAID, SELFPAY | END 2016-08-07 23:59 | disposition home or self-care (01) | LOC: MADERS 23:41 | DX: G43.909 Migraine, unspecified, not intractable, without status migrainosus (principal); E11.9 Type 2 diabetes mellitus without complications | CPT/HCPCS: 99283 ==

== ENCOUNTER 2016-08-12 00:01 | Emergency (ER) | payer MEDICAID ==
[2016-08-12] MEDS ORDERED: Promethazine HCl 25 MG/ML VIAL ONE (00:32)
[2016-08-12] MEDS ORDERED: Ketorolac Tromethamine 30 MG/ML VIAL ONE (00:32)
[2016-08-12] MEDS ORDERED: diphenhydrAMINE HCl 50 MG/ML 1 ML VIAL ONE (00:32)
[2016-08-12] MEDS ORDERED: Insulin Regular 300 UNITS/3 ML VIAL ONE (00:53)
[2016-08-12] MEDS ORDERED: Sodium Chloride 0.9% 1,000 ML BAG ONE (09:11)
== END 2016-08-12 01:25 | disposition home or self-care (01) ==
LOC: MADERS 00:01
DX: G43.909 Migraine, unspecified, not intractable, without status migrainosus (principal); E11.9 Type 2 diabetes mellitus without complications
CPT/HCPCS: 36416; J1200; J1815; J1885; J2550; J7050

== ENCOUNTER 2016-08-20 21:36 | Emergency (ER) | payer MEDICAID ==
[~2016-08-20 21:36] MED LIST: Sodium Chloride 0.9% 1,000 ML BAG ONE
[2016-08-20] MEDS ORDERED: diphenhydrAMINE HCl 50 MG/ML 1 ML VIAL ONE (22:15)
[2016-08-20] MEDS ORDERED: Ketorolac Tromethamine 30 MG/ML VIAL ONE (22:15)
[2016-08-20] MEDS ORDERED: Cephalexin 500 MG CAP ONE (22:15)
[2016-08-20] MEDS ORDERED: Promethazine HCl 25 MG/ML VIAL ONE (22:15)
[2016-08-20] MEDS ORDERED: Sulfameth/Trimethoprim DS 800-160mg TAB ONE (22:16)
[2016-08-20] MEDS ORDERED: Insulin Regular 300 UNITS/3 ML VIAL ONE (23:26)
== END 2016-08-20 23:58 | disposition home or self-care (01) ==
LOC: MADERS 21:36
DX: G43.909 Migraine, unspecified, not intractable, without status migrainosus (principal); S10.96XA Insect bite of unspecified part of neck, initial encounter; L08.9 Local infection of the skin and subcutaneous tissue, unspecified; E11.65 Type 2 diabetes mellitus with hyperglycemia; Z79.84 Long term (current) use of oral hypoglycemic drugs; Z79.899 Other long term (current) drug therapy
CPT/HCPCS: 36416; 96365; 96375; 96376; J1200; J1815; J1885; J2550; J7050

== ENCOUNTER 2016-08-29 12:39 | Emergency (ER) | payer MEDICAID, OTHER ==
[2016-08-29] MEDS ORDERED: Promethazine HCl 25 MG/ML VIAL ONE (13:28)
[2016-08-29] MEDS ORDERED: diphenhydrAMINE HCl 50 MG/ML 1 ML VIAL ONE (13:28)
[2016-08-29] MEDS ORDERED: Ketorolac Tromethamine 30 MG/ML VIAL ONE (13:28)
== END 2016-08-29 15:29 | disposition home or self-care (01) ==
LOC: MADERS 12:39
DX: G43.909 Migraine, unspecified, not intractable, without status migrainosus (principal); E11.9 Type 2 diabetes mellitus without complications; Z79.84 Long term (current) use of oral hypoglycemic drugs; Z79.899 Other long term (current) drug therapy
CPT/HCPCS: 36416; 96365; 96375; J1200; J1885; J2550; J7050

== ENCOUNTER 2016-09-22 12:10 | Emergency (ER) | payer OTHER, SELFPAY ==
[2016-09-22] MEDS ORDERED: Promethazine HCl 25 MG/ML VIAL ONE (12:45)
[2016-09-22] MEDS ORDERED: Ondansetron HCl/PF 4 MG/2 ML Vial ONE (12:45)
[2016-09-22] MEDS ORDERED: AMOXicillin 250 MG CAP ONE (12:45)
[2016-09-22] MEDS ORDERED: Ketorolac Tromethamine 30 MG/ML VIAL ONE (12:45)
[2016-09-22] MEDS ORDERED: diphenhydrAMINE HCl 50 MG/ML 1 ML VIAL ONE (12:45)
== END 2016-09-22 13:51 | disposition home or self-care (01) ==
LOC: MADERS 12:10
DX: G43.909 Migraine, unspecified, not intractable, without status migrainosus (principal); K08.89 Other specified disorders of teeth and supporting structures; Z79.84 Long term (current) use of oral hypoglycemic drugs
CPT/HCPCS: 96365; 96375; J1200; J1885; J2405; J2550; J7050

== ENCOUNTER 2016-09-27 23:40 | Emergency (ER) | payer SELFPAY ==
[2016-09-28] MEDS ORDERED: Ketorolac Tromethamine 60 MG/2 ML VIAL ONE (00:14)
[2016-09-28] MEDS ORDERED: Insulin Regular 300 UNITS/3 ML VIAL ONE (00:30)
[2016-09-28] MEDS ORDERED: Promethazine HCl 25 MG/ML VIAL ONE (00:43)
== END 2016-09-28 01:10 | disposition home or self-care (01) ==
LOC: MADERS 23:40
DX: M54.6 Pain in thoracic spine (principal); R11.2 Nausea with vomiting, unspecified; E11.9 Type 2 diabetes mellitus without complications
CPT/HCPCS: 36416; 93005; 96372; 96374; J1815; J1885; J2550

== ENCOUNTER 2016-10-05 16:58 | Emergency (ER) | payer SELFPAY ==
[2016-10-05] MEDS ORDERED: diphenhydrAMINE HCl 50 MG/ML 1 ML VIAL ONE (17:47)
[2016-10-05] MEDS ORDERED: Promethazine HCl 25 MG/ML VIAL ONE (17:47)
[2016-10-05] MEDS ORDERED: Ketorolac Tromethamine 30 MG/ML VIAL ONE (17:48)
[2016-10-05] MEDS ORDERED: Diazepam 10 MG/2 ML SYRINGE ONE (17:57)
--- NOTE | 2016-10-05 18:14 | RAD ---
THREE VIEWS THORACIC SPINE 10/05/16 HISTORY: Pain from T2 to T6. AP, lateral and swimmer's view thoracic spine is obtained. The thoracic spine is unremarkable. No evidence of fractures, subluxations, or bony lesions seen. IMPRESSION: Normal three views thoracic spine. POS: [facility]
[2016-10-05] MEDS ORDERED: Insulin Regular 300 UNITS/3 ML VIAL ONE (18:54)
== END 2016-10-05 20:35 | disposition home or self-care (01) ==
LOC: MADERS 16:58
DX: S29.012A Strain of muscle and tendon of back wall of thorax, initial encounter (principal); G43.909 Migraine, unspecified, not intractable, without status migrainosus; E11.65 Type 2 diabetes mellitus with hyperglycemia; Z79.84 Long term (current) use of oral hypoglycemic drugs; Z79.899 Other long term (current) drug therapy; X58.XXXA Exposure to other specified factors, initial encounter
CPT/HCPCS: 36416; 72072; 96361; 96374; 96375; J1200; J1815; J1885; J2550; J3360; J7050

== ENCOUNTER 2016-10-12 14:36 | Emergency (ER) | payer SELFPAY ==
[2016-10-12] MEDS ORDERED: Ketorolac Tromethamine 30 MG/ML VIAL ONE (15:35)
[2016-10-12] MEDS ORDERED: Promethazine HCl 25 MG/ML VIAL ONE (15:35)
[2016-10-12] MEDS ORDERED: diphenhydrAMINE HCl 50 MG/ML 1 ML VIAL ONE (15:42)
[2016-10-12 16:28] LABS: White Blood Cell (WBC) Count 5.5 thou/uL (4.8-10.8)
[2016-10-12 16:29] LABS: #Basophils 0.2 thou/uL (0.0-0.2); #Eosinphils 0.1 thou/uL (0.0-0.7); #Lymphocytes 1.3 thou/uL (1.20-3.40); #Monocytes 0.4 thou/uL (0.11-0.59); #Neutrophils 3.6 thou/uL (1.40-6.50); %Eosinophils 1.5 % (0.0-10.0); %Lymphocytes 22.8 % (21.0-51.0); %Monocytes 7.3 % (0.0-10.0); %Neutrophils 65.5 % (42.0-75.0); Hemoglobin 13.3 g/dL (12.0-16.0); Mean Corpuscular HGB CONC 32.7 g/dL (32.0-36.0); Mean Corpuscular Hemoglobin 29.7 pg (27.0-31.0); Mean Corpuscular Volume 90.8 fL (81.0-99.0); Mean Platelet Volume 6.6 fL (7.4-10.4); Platelet Count 244 thou/uL (130-400); RBC Distribution Width 13.9 % (11.5-14.5); Red Blood Cell (RBC) Count 4.48 mill/uL (4.20-5.40)
[2016-10-12 16:37] LABS: ALT (SGPT) 14 U/L (8-55); AST (SGOT) 14 U/L (5-34); Albumin 3.4 g/dL (3.5-5.0); Alkaline Phosphatase 110 U/L (40-150); Anion Gap 15 mmol/L (10-20); BUN (Urea Nitrogen) 10 mg/dL (7.0-18.7); Bilirubin, Total Less than 0.3 mg/dL (0.2-1.2); Calc. Creatinine Clearance 0 mL/min (70-130); Calcium 8.4 mg/dL (7.8-10.44); Carbon Dioxide 22 mmol/L (22-29); Chloride 102 mmol/L (98-107); Estimated GFR-MDRD Greater than 90; Globulin 3.1 g/dL (2.4-3.5); Glucose 304 mg/dL (70-105); Potassium 4.5 mmol/L (3.5-5.1); Protein, Total 6.5 g/dL (6.0-8.3); Sodium 134 mmol/L (136-145)
[2016-10-12] MEDS ORDERED: Insulin Regular 300 UNITS/3 ML VIAL ONE (16:37)
== END 2016-10-12 17:05 | disposition home or self-care (01) ==
LOC: MADERS 14:36
DX: G43.909 Migraine, unspecified, not intractable, without status migrainosus (principal); E11.9 Type 2 diabetes mellitus without complications; Z79.84 Long term (current) use of oral hypoglycemic drugs; Z79.899 Other long term (current) drug therapy
CPT/HCPCS: 36416; 80053; 85025; 96361; 96374; 96375; 36415-59; J1200; J1815; J1885; J2550; J7050

== ENCOUNTER 2016-10-22 13:50 | Emergency (ER) | payer SELFPAY ==
[2016-10-22] MEDS ORDERED: Promethazine HCl 25 MG/ML VIAL ONE (14:18)
[2016-10-22] MEDS ORDERED: Ketorolac Tromethamine 30 MG/ML VIAL ONE (14:18)
[2016-10-22] MEDS ORDERED: diphenhydrAMINE HCl 50 MG/ML 1 ML VIAL ONE (14:18)
[2016-10-22] MEDS ORDERED: Diazepam 10 MG/2 ML SYRINGE ONE (14:19)
[2016-10-22] MEDS ORDERED: Insulin Regular 300 UNITS/3 ML VIAL ONE (14:49)
== END 2016-10-22 16:10 | disposition home or self-care (01) ==
LOC: MADERS 13:50
DX: G43.909 Migraine, unspecified, not intractable, without status migrainosus (principal); E11.9 Type 2 diabetes mellitus without complications; Z79.899 Other long term (current) drug therapy; Z79.84 Long term (current) use of oral hypoglycemic drugs
CPT/HCPCS: 36416; 96361; 96374; 96375; J1200; J1815; J1885; J2550; J3360; J7050

== ENCOUNTER 2017-06-08 02:10 | Emergency (ER) | payer OTHER, SELFPAY | END 2017-06-08 03:11 | disposition home or self-care (01) | LOC: MADERS 02:10 | DX: K91.872 Postprocedural seroma of a digestive system organ or structure following a digestive system procedure (principal); G43.909 Migraine, unspecified, not intractable, without status migrainosus; E11.9 Type 2 diabetes mellitus without complications; F17.210 Nicotine dependence, cigarettes, uncomplicated; Z79.84 Long term (current) use of oral hypoglycemic drugs; Z79.899 Other long term (current) drug therapy | CPT/HCPCS: 99282 ==

== ENCOUNTER 2017-11-09 15:21 | Emergency (ER) | payer MEDICAID, OTHER ==
[2017-11-09] MEDS ORDERED: Fleet Enema 133 ML BOT ONE (15:50)
[2017-11-09] MEDS ORDERED: Mineral Oil ENEMA ONE (15:50)
== END 2017-11-09 16:50 | disposition home or self-care (01) ==
LOC: MADERS 15:21
DX: K59.00 Constipation, unspecified (principal); E11.9 Type 2 diabetes mellitus without complications; F17.210 Nicotine dependence, cigarettes, uncomplicated; Z79.84 Long term (current) use of oral hypoglycemic drugs
CPT/HCPCS: 99283

== ENCOUNTER 2018-04-26 19:19 | Emergency (ER) | payer MEDICAID ==
[2018-04-26] MEDS ORDERED: Ketorolac Tromethamine 30 MG/ML VIAL ONE (19:56)
[2018-04-26] MEDS ORDERED: guaiFENesin ER 600 MG TAB ONE (20:06)
== END 2018-04-26 20:31 | disposition home or self-care (01) ==
LOC: MADERS 19:19
DX: B34.9 Viral infection, unspecified (principal); G43.909 Migraine, unspecified, not intractable, without status migrainosus; E11.9 Type 2 diabetes mellitus without complications; F17.210 Nicotine dependence, cigarettes, uncomplicated; Z79.84 Long term (current) use of oral hypoglycemic drugs
CPT/HCPCS: 96372; J1885

== ENCOUNTER 2018-04-29 08:54 | Emergency (ER) | payer MEDICAID ==
[2018-04-29] MEDS ORDERED: Lidocaine Viscous Sol 2% 15 ml UD Cup ONE (10:12)
[2018-04-29] MEDS ORDERED: Mag-Al Plus 1200 MG/1200 MG/120 MG/30 ML UDCUP ONE (10:12)
--- NOTE | 2018-04-29 10:18 | RAD ---
2 VIEWS CHEST: Date: 04/29/18 COMPARISON: 03/21/15. HISTORY: Cough. FINDINGS: Two views of the chest show normal sized cardiomediastinal silhouette. There is no evidence of consol idation, mass, or pleural effusion. The bones are unremarkable. IMPRESSION: No evidence of acute cardiopulmonary disease. POS: [facility]
== END 2018-04-29 10:49 | disposition home or self-care (01) ==
LOC: MADERS 08:54
DX: J20.9 Acute bronchitis, unspecified (principal); R11.2 Nausea with vomiting, unspecified; G43.909 Migraine, unspecified, not intractable, without status migrainosus; E11.9 Type 2 diabetes mellitus without complications; Z79.84 Long term (current) use of oral hypoglycemic drugs; Z79.899 Other long term (current) drug therapy
CPT/HCPCS: 71046; 93005

== ENCOUNTER 2018-09-04 19:18 | Emergency (ER) | payer OTHER ==
[2018-09-04] MEDS ORDERED: Promethazine HCl 25 MG/ML VIAL ONE (20:13)
[2018-09-04] MEDS ORDERED: Sodium Chloride 0.9% 1,000 ML ONE (20:13)
[2018-09-04 20:25] LABS: INR-International Normal Ratio 0.8; Prothrombin Time 11.2 SEC (12.0-14.7)
[2018-09-04 20:26] LABS: D-Dimer Test 0.47 *mcg/mL (0.27-0.43)
[2018-09-04 20:29] LABS: PTT 17.7 SEC (22.9-36.1)
[2018-09-04 20:34] LABS: ALT (SGPT) 20 U/L (8-55); AST (SGOT) 17 U/L (5-34); Albumin 3.9 g/dL (3.5-5.0); Alkaline Phosphatase 101 U/L (40-150); Anion Gap 15 mmol/L (10-20); BUN (Urea Nitrogen) 21 mg/dL (7.0-18.7); Bilirubin, Total 0.2 mg/dL (0.2-1.2); CK (CPK) 126 U/L (29-168); Calc. Creatinine Clearance 0 mL/min (70-130); Carbon Dioxide 21 mmol/L (22-29); Chloride 100 mmol/L (98-107); Estimated GFR-MDRD 52; Globulin 3.2 g/dL (2.4-3.5); Glucose 517 mg/dL (70-105); Lipase 36 U/L (8-78); Potassium 4.8 mmol/L (3.5-5.1); Protein, Total 7.1 g/dL (6.0-8.3); Sodium 131 mmol/L (136-145)
[2018-09-04 20:36] LABS: Hemoglobin 12.5 g/dL (12.0-16.0); Mean Corpuscular HGB CONC 32.4 g/dL (32.0-36.0); Mean Corpuscular Hemoglobin 28.2 pg (27.0-31.0); Mean Platelet Volume 7.1 fL (7.4-10.4); Platelet Count 239 thou/uL (130-400); RBC Distribution Width 13.7 % (11.5-14.5); Red Blood Cell (RBC) Count 4.43 mill/uL (4.20-5.40); White Blood Cell (WBC) Count 6.6 thou/uL (4.8-10.8)
--- NOTE | 2018-09-04 20:36 | RAD ---
PORTABLE CHEST: 09/04/18 HISTORY: Chest pain. Lungs are clear. Heart and mediastinum appear normal. Vasculature normal. IMPRESSION: Negative chest. POS: [facility]
[2018-09-04 20:38] LABS: Lymphocytes 21 % (21-51); MDiff Complete? YES; Neutrophil 71 % (42-75)
[2018-09-04 20:39] LABS: Eosinophils 1 % (0-10); Monocytes 7 % (0-10)
[2018-09-04 20:41] LABS: CKMB 1.2 ng/mL (0-6.6)
== END 2018-09-04 22:07 | disposition home or self-care (01) ==
LOC: MADERS 19:18
DX: R07.2 Precordial pain (principal); E11.65 Type 2 diabetes mellitus with hyperglycemia; E86.0 Dehydration; Z79.84 Long term (current) use of oral hypoglycemic drugs
CPT/HCPCS: 36415; 36416; 71045; 80053; 82010; 82150; 82550; 82553; 83690; 84484; 85025; 85379; 85610; 85730; 93005; 96361; 96374; J2550; J7050

== ENCOUNTER 2018-09-05 21:28 | Emergency (ER) | payer OTHER ==
[2018-09-05 22:32] LABS: Bilirubin Negative (Negative); Blood, Urine Small (Negative); Glucose, Urine (Dipstick) >=1000 mg/dL (Negative); Leukocyte Negative (Negative); Nitrite Negative (Negative); Protein, Urine (Dipstick) 100 mg/dL (Neg-Trace); Specific Gravity, Urine 1.015 (1.005-1.030); Urobilinogen 0.2 mg/dL (0.2-1.0)
[2018-09-05] MEDS ORDERED: Sodium Chloride 0.9% 1,000 ML ONE (22:35)
[2018-09-05 22:47] LABS: Clarity Hazy (Clear)
[2018-09-05 22:48] LABS: Bacteria/HPF Rare-Few HPF (None Seen); Cocaine Metabolite Screen Not Detected (NotDetected); Methamphetamine Not Detected (NotDetected); Opiate Screen Detected (NotDetected); Phencyclidine (PCP) Not Detected (NotDetected); Pregnancy Test - Urine (BHCG) Negative (Negative); Pregu Control Background? CLEAR/WHITE (CLR/WHITE); Pregu Control Bar Appear? YES (CONTROL BAR); Specific Gravity 1.015 (1.002-1.036); Squamous Epithelial 21-50 HPF (0-3); THC/Cannabinoid Screen Not Detected (NotDetected)
[2018-09-05 22:49] LABS: Amphetamine Not Detected (NotDetected); Barbiturates Screen Not Detected (NotDetected); Benzodiazepine Screen Not Detected (NotDetected); Medtox Control Line Valid? VALID (VALID); Methadone Not Detected (NotDetected); Oxycodone Screen Not Detected (NotDetected); Tricyclic Screen Not Detected (NotDetected)
[2018-09-05] MEDS ORDERED: Promethazine HCl 25 MG/ML VIAL ONE (22:57)
[2018-09-05 22:58] LABS: ALT (SGPT) 16 U/L (8-55); AST (SGOT) 11 U/L (5-34); Albumin 3.8 g/dL (3.5-5.0); Alkaline Phosphatase 86 U/L (40-150); Anion Gap 11 mmol/L (10-20); BUN (Urea Nitrogen) 16 mg/dL (7.0-18.7); Bilirubin, Total 0.3 mg/dL (0.2-1.2); Calc. Creatinine Clearance 0 mL/min (70-130); Calcium 8.7 mg/dL (7.8-10.44); Carbon Dioxide 24 mmol/L (22-29); Chloride 101 mmol/L (98-107); Estimated GFR-MDRD 87; Globulin 2.8 g/dL (2.4-3.5); Glucose 320 mg/dL (70-105); Lipase 18 U/L (8-78); Magnesium 1.5 mg/dL (1.6-2.6); Potassium 4.1 mmol/L (3.5-5.1); Protein, Total 6.6 g/dL (6.0-8.3); Sodium 132 mmol/L (136-145)
[2018-09-05 23:00] LABS: Hemoglobin 12.5 g/dL (12.0-16.0); MDiff Complete? YES; Mean Corpuscular HGB CONC 32.5 g/dL (32.0-36.0); Mean Corpuscular Hemoglobin 28.4 pg (27.0-31.0); Mean Corpuscular Volume 87.2 fL (78.0-98.0); Mean Platelet Volume 6.6 fL (7.4-10.4); Platelet Count 246 thou/uL (130-400); RBC Distribution Width 13.5 % (11.5-14.5); Red Blood Cell (RBC) Count 4.42 mill/uL (4.20-5.40); White Blood Cell (WBC) Count 6.2 thou/uL (4.8-10.8)
[2018-09-05 23:01] LABS: Band 2 % (5-11); Eosinophils 3 % (0-10); Lymphocytes 24 % (21-51); Monocytes 6 % (0-10)
[2018-09-05 23:02] LABS: Neutrophil 65 % (42-75)
[2018-09-05] MEDS ORDERED: Magnesium Sulfate 2 GM/NS 0.9% 50 ML BAG ONE (23:07)
== END 2018-09-05 23:59 | disposition home or self-care (01) ==
LOC: MADERS 21:28
DX: E83.42 Hypomagnesemia (principal); R11.2 Nausea with vomiting, unspecified; E11.65 Type 2 diabetes mellitus with hyperglycemia; G43.909 Migraine, unspecified, not intractable, without status migrainosus; Z79.84 Long term (current) use of oral hypoglycemic drugs; Z79.899 Other long term (current) drug therapy
CPT/HCPCS: 36415; 36416; 80053; 80306; 81003; 81015; 81025; 83605; 83690; 83735; 84443; 85025; 96365; 96367; J2550; J3475; J7050

== ENCOUNTER 2018-09-28 14:25 | Emergency (ER) | payer BC, MEDICAID ==
[2018-09-28] MEDS ORDERED: Insulin Regular 300 UNITS/3 ML VIAL ONE (15:01)
[2018-09-28 15:07] LABS: #Basophils 0.1 thou/uL (0.0-0.2); #Eosinphils 0.1 thou/uL (0.0-0.7); #Lymphocytes 1.3 thou/uL (1.20-3.40); #Monocytes 0.4 thou/uL (0.11-0.59); #Neutrophils 4.1 thou/uL (1.40-6.50); %Basophils 2.2 % (0.0-1.0); %Eosinophils 1.2 % (0.0-10.0); %Lymphocytes 22.1 % (21.0-51.0); %Monocytes 6.1 % (0.0-10.0); %Neutrophils 68.4 % (42.0-75.0); Hemoglobin 12.7 g/dL (12.0-16.0); Mean Corpuscular HGB CONC 31.7 g/dL (32.0-36.0); Mean Corpuscular Hemoglobin 27.7 pg (27.0-31.0); Mean Corpuscular Volume 87.4 fL (78.0-98.0); Mean Platelet Volume 6.8 fL (7.4-10.4); Platelet Count 257 thou/uL (130-400); RBC Distribution Width 12.9 % (11.5-14.5); Red Blood Cell (RBC) Count 4.59 mill/uL (4.20-5.40)
[2018-09-28 15:19] LABS: Base Excess-Venous 0.1 mmol/L (-2.0 to 3.0); Bicarbonate (HCO3v) 26.6 mmol/L (22.0-28.0); CO2 Tension (PvCO2) 48.6 mmHg (40.0-50.0); Calcium, Ionized 1.19 mmol/L (See Comments:); Chloride 98 mmol/L (98-107); Hemoglobin - Calc 15.8 g/dL (12.0-16.0); O2 Tension (PvO2) 73.9 mmHg (35.0-45.0); Potassium 4.4 mmol/L (3.5-5.1); Sodium 134 mmol/L (138-145); T. Carbon Dioxide 28.1 mmol/L (22.0-28.0); pH (Venous) 7.346 (7.320-7.430); vO2 Saturation-calc 93.6 % (60.0-85.0)
[2018-09-28 15:27] LABS: ALT (SGPT) 29 U/L (8-55); AST (SGOT) 14 U/L (5-34); Alkaline Phosphatase 109 U/L (40-150); Anion Gap 16 mmol/L (10-20); BUN (Urea Nitrogen) 12 mg/dL (7.0-18.7); Bilirubin, Total 0.4 mg/dL (0.2-1.2); CK (CPK) 78 U/L (29-168); Calc. Creatinine Clearance 0 mL/min (70-130); Calcium 9.1 mg/dL (7.8-10.44); Carbon Dioxide 25 mmol/L (22-29); Chloride 98 mmol/L (98-107); Estimated GFR-MDRD 71; Globulin 2.9 g/dL (2.4-3.5); Glucose 515 mg/dL (70-105); Lipase 21 U/L (8-78); Potassium 4.5 mmol/L (3.5-5.1); Protein, Total 6.9 g/dL (6.0-8.3); Sodium 134 mmol/L (136-145)
[2018-09-28] MEDS ORDERED: Meclizine HCl 25 MG TAB ONE (15:33)
[2018-09-28] MEDS ORDERED: Ketorolac Tromethamine 30 MG/ML VIAL ONE (15:33)
[2018-09-28 15:48] LABS: Bilirubin Negative (Negative); Blood, Urine Trace (Negative); Glucose, Urine (Dipstick) >=1000 mg/dL (Negative); Leukocyte Negative (Negative); Nitrite Negative (Negative); Protein, Urine (Dipstick) 30 mg/dL (Neg-Trace); Urobilinogen 0.2 mg/dL (0.2-1.0)
[2018-09-28 15:51] LABS: Clarity Hazy (Clear); Specific Gravity, Urine 1.035 (1.002-1.036)
[2018-09-28 15:56] LABS: Bacteria/HPF Rare-Few HPF (None Seen); RBC/HPF 0-3 HPF (0-3); WBC/HPF None Seen HPF (0-3); Yeast-All Forms 1+ HPF (None Seen)
[2018-09-28] MEDS ORDERED: diphenhydrAMINE 50 MG/ML VIAL ONE (16:03)
[2018-09-28] MEDS ORDERED: Sodium Chloride 0.9% 2,000 ML ONE (16:12)
[2018-09-28 16:17] LABS: CKMB 1.4 ng/mL (0-6.6)
[2018-09-28] MEDS ORDERED: Aspirin Chewable 81 MG TAB ONE ×2 (16:38→16:40)
--- NOTE | 2018-09-28 17:16 | RAD ---
Chest one view HISTORY: Chest pain. COMPARISON: 09/04/2018. FINDINGS: Cardiac silhouette is magnified by projection. Pulmonary vasculature is unremarkable. Media stinum is midline. No lobar consolidation or evidence of pneumothorax. monitoring analyst leads overlie the chest. IMPRESSION: No active cardiopulmonary abnormalities are demonstrated.
== END 2018-09-28 16:00 | disposition home or self-care (01) ==
LOC: MADERS 14:25
DX: E11.65 Type 2 diabetes mellitus with hyperglycemia (principal); G43.909 Migraine, unspecified, not intractable, without status migrainosus; R07.9 Chest pain, unspecified
CPT/HCPCS: 36415; 36416; 71045; 80053; 81003; 81015; 82330; 82435; 82550; 82553; 82803; 83605; 83690; 84132; 84295; 84484; 85014; 85025; 93005; 96361; 96374; 96375; J1200; J1815; J1885; J7050; J8499

== ENCOUNTER 2019-09-13 11:44 | Emergency (ER) | payer BC, OTHER ==
[2019-09-13] MEDS ORDERED: Promethazine HCl 6.25 MG/5 ML Syrup ONE (12:46)
[2019-09-13] MEDS ORDERED: Promethazine HCl 25 MG/ML VIAL ONE (12:47)
[2019-09-13 13:08] LABS: ALT (SGPT) 9 U/L (8-55); AST (SGOT) 9 U/L (5-34); Albumin 3.9 g/dL (3.5-5.0); Alkaline Phosphatase 85 U/L (40-110); Anion Gap 15 mmol/L (10-20); BUN (Urea Nitrogen) 14 mg/dL (7.0-18.7); Bilirubin, Total 0.3 mg/dL (0.2-1.2); Calc. Creatinine Clearance 0 mL/min (70-130); Calcium 9.1 mg/dL (7.8-10.44); Carbon Dioxide 25 mmol/L (22-29); Chloride 98 mmol/L (98-107); Eosinophils 2 % (0-10); Estimated GFR-MDRD Greater than 90; Globulin 3.3 g/dL (2.4-3.5); Glucose 340 mg/dL (70-105); Hemoglobin 12.4 g/dL (12.0-16.0); Lipase 8 U/L (8-78); Lymphocytes 12 % (21-51); MDiff Complete? YES; Mean Corpuscular HGB CONC 30.8 g/dL (32.0-36.0); Mean Corpuscular Hemoglobin 26.7 pg (27.0-31.0); Mean Corpuscular Volume 86.7 fL (78.0-98.0); Mean Platelet Volume 6.7 fL (7.4-10.4); Monocytes 3 % (0-10); Neutrophil 76 % (42-75); Platelet Count 303 thou/uL (130-400); Platelet Morphology Comment Appears Adequate; Potassium 4.3 mmol/L (3.5-5.1); Protein, Total 7.2 g/dL (6.0-8.3); RBC Distribution Width 12.4 % (11.5-14.5); RBC Morphology Normal; Reactive Lymphocytes 7 % (0-10); Red Blood Cell (RBC) Count 4.66 mill/uL (4.20-5.40); Sodium 134 mmol/L (136-145)
[2019-09-13 13:10] LABS: Bilirubin Negative (Negative); Blood, Urine Moderate (Negative); Clarity Clear (Clear); Glucose, Urine (Dipstick) >=1000 mg/dL (Negative); Leukocyte Negative (Negative); Nitrite Negative (Negative); Protein, Urine (Dipstick) > or equal to 300 mg/dL (Neg-Trace); Urobilinogen 0.2 mg/dL (Less than 2)
--- NOTE | 2019-09-13 13:10 | RAD ---
EXAM: CHEST ONE VIEW: History: Chest pain FINDINGS: Heart size is normal. The lungs are clear. No confluent pneumonia, overt edema, or pleural effusion. IMPRESSION: No acute intrathoracic disease. POS: [facility]
[2019-09-13 13:13] LABS: Bacteria/HPF Rare-Few HPF (None Seen); WBC/HPF None Seen HPF (0-3)
[2019-09-13] MEDS ORDERED: Insulin Regular 300 UNITS/3 ML VIAL ONE (13:37)
== END 2019-09-13 13:45 | disposition home or self-care (01) ==
LOC: MADERS 11:44
DX: E11.65 Type 2 diabetes mellitus with hyperglycemia (principal); R11.2 Nausea with vomiting, unspecified; R10.84 Generalized abdominal pain; R63.0 Anorexia; G43.909 Migraine, unspecified, not intractable, without status migrainosus; F17.210 Nicotine dependence, cigarettes, uncomplicated
CPT/HCPCS: 36416; 71045; 80053; 81003; 81015; 82150; 83690; 85025; 87086; 94760; 96365; J1815; J2550; J7050

== ENCOUNTER 2019-12-17 08:53 | Emergency (ER) | payer BC, OTHER ==
[2019-12-17] MEDS ORDERED: Prochlorperazine 10 MG/2 ML VIAL ONE (09:32)
[2019-12-17] MEDS ORDERED: Sodium Chloride 0.9% 1,000 ML ONE (09:32)
[2019-12-17 09:39] LABS: Pregnancy Test - Urine (BHCG) Negative (Negative)
[2019-12-17 09:40] LABS: Pregu Control Background? CLEAR/WHITE (CLR/WHITE); Pregu Control Bar Appear? YES (CONTROL BAR); Specific Gravity 1.025 (1.002-1.036)
[2019-12-17 09:44] LABS: Bilirubin Negative (Negative); Blood, Urine Moderate (Negative); Clarity Hazy (Clear); Glucose, Urine (Dipstick) 500 mg/dL (Negative); Ketone, Urine Trace mg/dL (Negative); Leukocyte Negative (Negative); Nitrite Negative (Negative); Protein, Urine (Dipstick) > or equal to 300 mg/dL (Neg-Trace); Specific Gravity, Urine 1.025 (1.005-1.030); Urobilinogen 0.2 mg/dL (Less than 2)
[2019-12-17 09:45] LABS: Bacteria/HPF Rare-Few HPF (None Seen); Squamous Epithelial 0-3 HPF (0-3); WBC/HPF 0-3 HPF (0-3)
--- NOTE | 2019-12-17 09:51 | CT ---
CT Abdomen Pelvis W Con: 12/17/2019 9:16 AM CLINICAL INFORMATION: Right lower quadrant abdominal pain with nausea and vomiting COMPARISON: 09/08/2018 TECHNIQUE: Multiple contiguous axial images were obtained and a CT of the abdomen and pelvis with IV contrast. C oronal and sagittal reformats were performed. FINDINGS: Lower Chest: within normal limits. Abdomen: Liver: within normal limits. Bile Ducts: Normal caliber. Gallbladder: No calcified gallstones. Normal caliber wall. Pancreas: within normal limits. Spleen: within normal limits. Adrenals: within normal limits. Kidneys: within normal limits. Pelvis: Reproductive Organs: Status post hysterectomy. There is a 2.3 cm follicle within a remaining left ova ry. Ureters: within normal limits. Bladder: within normal limits. Peritoneum: No ascites or free air, no fluid collection. Bowel: Normal caliber. Normal appendix. Mesentery and Retroperitoneum: No enlarged mesenteric or retroperitoneal lymph nodes. Vessels: Normal. Abdominal Wall: within normal limits. Bones: Within normal limits IMPRESSION: No evidence of acute intraabdominal or pelvic abnormality.
[2019-12-17 09:54] LABS: ALT (SGPT) 9 U/L (8-55); AST (SGOT) 6 U/L (5-34); Albumin 4.1 g/dL (3.5-5.0); Alkaline Phosphatase 92 U/L (40-110); Anion Gap 17 mmol/L (10-20); BUN (Urea Nitrogen) 7 mg/dL (7.0-18.7); Bilirubin, Total 0.5 mg/dL (0.2-1.2); Calc. Creatinine Clearance 0 mL/min (70-130); Calcium 9.7 mg/dL (7.8-10.44); Carbon Dioxide 26 mmol/L (22-29); Chloride 98 mmol/L (98-107); Estimated GFR-MDRD 74; Globulin 3.5 g/dL (2.4-3.5); Glucose 405 mg/dL (70-105); Lipase 8 U/L (8-78); Potassium 3.8 mmol/L (3.5-5.1); Protein, Total 7.6 g/dL (6.0-8.3); Sodium 137 mmol/L (136-145)
[2019-12-17 09:56] LABS: Hemoglobin 13.8 g/dL (12.0-16.0); Lymphocytes 3 % (21-51); MDiff Complete? YES; Mean Corpuscular Hemoglobin 25.9 pg (27.0-31.0); Mean Corpuscular Volume 83.4 fL (78.0-98.0); Mean Platelet Volume 6.6 fL (7.4-10.4); Monocytes 5 % (0-10); Neutrophil 80 % (42-75); Platelet Count 334 thou/uL (130-400); Platelet Morphology Comment Appears Adequate; RBC Distribution Width 12.3 % (11.5-14.5); RBC Morphology Normal; Reactive Lymphocytes 12 % (0-10); Red Blood Cell (RBC) Count 5.35 mill/uL (4.20-5.40); White Blood Cell (WBC) Count 6.4 thou/uL (4.8-10.8)
[2019-12-17] MEDS ORDERED: Promethazine HCl 25 MG/ML VIAL ONE (10:05)
[2019-12-17] MEDS ORDERED: Iopamidol 370 76% 100 ML VIAL ONE (10:53)
== END 2019-12-17 10:28 | disposition left against medical advice (07) ==
LOC: MADERS 08:53
DX: E11.65 Type 2 diabetes mellitus with hyperglycemia (principal); R11.2 Nausea with vomiting, unspecified; R10.9 Unspecified abdominal pain; G43.909 Migraine, unspecified, not intractable, without status migrainosus; F17.210 Nicotine dependence, cigarettes, uncomplicated; Z79.84 Long term (current) use of oral hypoglycemic drugs
CPT/HCPCS: 74177; 80053; 81003; 81015; 81025; 83605; 83690; 85025; 96361; 96374; J0780; J2550; J7050; Q9967

== ENCOUNTER 2019-12-18 06:49 | Emergency (ER) | payer BC, OTHER ==
[2019-12-18 07:56] LABS: #Basophils 0.1 thou/uL (0.0-0.2); #Lymphocytes 0.8 thou/uL (1.20-3.40); #Monocytes 0.6 thou/uL (0.11-0.59); #Neutrophils 11.4 thou/uL (1.40-6.50); %Basophils 1.1 % (0.0-1.0); %Lymphocytes 5.8 % (21.0-51.0); %Monocytes 4.7 % (0.0-10.0); %Neutrophils 88.4 % (42.0-75.0); Hemoglobin 14.5 g/dL (12.0-16.0); Mean Corpuscular HGB CONC 32.3 g/dL (32.0-36.0); Mean Corpuscular Hemoglobin 26.8 pg (27.0-31.0); Platelet Count 392 thou/uL (130-400); RBC Distribution Width 12.4 % (11.5-14.5); White Blood Cell (WBC) Count 12.9 thou/uL (4.8-10.8)
[2019-12-18 08:08] LABS: Anion Gap 30 mmol/L (10-20)
[2019-12-18 08:10] LABS: Acetaminophen Less than 6.0 mcg/mL (10.0-30.0); Alcohol Less than 10 mg/dL (Less than 10); Salicylate Less than 8.0 mg/dL (15.0-30.0)
[2019-12-18 08:17] LABS: BUN (Urea Nitrogen) 27 mg/dL (7.0-18.7); Calc. Creatinine Clearance 0 mL/min (70-130); Calcium 10.2 mg/dL (7.8-10.44); Carbon Dioxide 24 mmol/L (22-29); Chloride 89 mmol/L (98-107); Estimated GFR-MDRD 39; Glucose 688 mg/dL (70-105); Potassium 3.3 mmol/L (3.5-5.1); Sodium 140 mmol/L (136-145)
[2019-12-18] MEDS ORDERED: Insulin Regular 300 UNITS/3 ML VIAL ONE (09:03)
[2019-12-18] MEDS ORDERED: Milk Of Magnesia 30 ML UDCUP ONE (09:03)
[2019-12-18] MEDS ORDERED: Potassium Chloride 20 MEQ/100 ML PREMIX BAG ONE ×2 (09:18→10:37)
[2019-12-18 09:19] LABS: Base Excess-Venous 8.5 mmol/L (-2.0 to 3.0); Bicarbonate (HCO3v) 31.7 mmol/L (22.0-28.0); CO2 Tension (PvCO2) 37.6 mmHg (40.0-50.0); Calcium, Ionized 0.98 mmol/L (See Comments:); Chloride 97 mmol/L (98-107); Hemoglobin - Calc 17.4 g/dL (12.0-16.0); Potassium 3.4 mmol/L (3.5-5.1); Sodium 139 mmol/L (138-145); T. Carbon Dioxide 32.8 mmol/L (22.0-28.0); vO2 Saturation-calc 99.8 % (60.0-85.0)
== END 2019-12-18 10:46 | disposition short-term general hospital (02) ==
LOC: MADERS 06:49
DX: E11.10 Type 2 diabetes mellitus with ketoacidosis without coma (principal); G43.909 Migraine, unspecified, not intractable, without status migrainosus; F17.210 Nicotine dependence, cigarettes, uncomplicated
CPT/HCPCS: 36415; 36416; 80048; 80307; 82330; 82803; 83735; 85025; 96361; 96365; 96376; J1815; J3480; J7120

== ENCOUNTER 2021-05-02 19:18 | Emergency (ER) | payer BC ==
[2021-05-02] MEDS ORDERED: Cephalexin 250 MG CAP ONE (20:40)
== END 2021-05-02 20:46 | disposition home or self-care (01) ==
LOC: MADERS 19:18
DX: L03.116 Cellulitis of left lower limb (principal); L03.115 Cellulitis of right lower limb; E11.9 Type 2 diabetes mellitus without complications; G43.909 Migraine, unspecified, not intractable, without status migrainosus; F17.210 Nicotine dependence, cigarettes, uncomplicated; Z79.84 Long term (current) use of oral hypoglycemic drugs
CPT/HCPCS: 99283

== ENCOUNTER 2021-09-28 13:56 | Emergency (ER) | payer BC, OTHER ==
[2021-09-28] MEDS ORDERED: Fleet Enema 133 ML BOT ONE (14:39)
== END 2021-09-28 16:02 | disposition home or self-care (01) ==
LOC: MADERS 13:56
DX: K56.41 Fecal impaction (principal); G43.909 Migraine, unspecified, not intractable, without status migrainosus; E11.9 Type 2 diabetes mellitus without complications; F17.210 Nicotine dependence, cigarettes, uncomplicated; Z79.4 Long term (current) use of insulin
CPT/HCPCS: 99283

== ENCOUNTER 2022-03-23 01:10 | Emergency (ER) | payer BC, OTHER | END 2022-03-23 02:00 | disposition home or self-care (01) | LOC: MADERS 01:10 | DX: Z48.00 Encounter for change or removal of nonsurgical wound dressing (principal); E11.9 Type 2 diabetes mellitus without complications; Z79.4 Long term (current) use of insulin; Z79.84 Long term (current) use of oral hypoglycemic drugs; F17.210 Nicotine dependence, cigarettes, uncomplicated | CPT/HCPCS: 99282 ==

== ENCOUNTER 2022-06-29 22:26 | Emergency (ER) | payer BC, OTHER ==
[~2022-06-29 22:26] MED LIST changes: +Lactated Ringer's 1,000 ML BAG ONE; -Sodium Chloride 0.9% 1,000 ML BAG ONE
[2022-06-29] MEDS ORDERED: Acetaminophen 500 MG TAB ONE (23:11)
[2022-06-29] MEDS ORDERED: Promethazine 25 MG TAB ONE (23:11)
[2022-06-29] MEDS ORDERED: Promethazine HCl 25 MG/ML VIAL ONE (23:19)
[2022-06-29 23:24] LABS: #Basophils 0.1 thou/uL (0.0-0.2); #Eosinphils 0.2 thou/uL (0.0-0.7); #Lymphocytes 1.5 thou/uL (1.20-3.40); #Monocytes 0.5 thou/uL (0.11-0.59); #Neutrophils 4.3 thou/uL (1.40-6.50); %Basophils 1.3 % (0.0-1.0); %Eosinophils 2.5 % (0.0-10.0); %Lymphocytes 22.8 % (21.0-51.0); %Monocytes 8.1 % (0.0-10.0); %Neutrophils 65.3 % (42.0-75.0); Hemoglobin 11.5 g/dL (12.0-16.0); Mean Corpuscular HGB CONC 33.1 g/dL (32.0-36.0); Mean Corpuscular Hemoglobin 27.6 pg (27.0-31.0); Mean Corpuscular Volume 83.3 fl (78.0-98.0); Mean Platelet Volume 6.6 fL (7.4-10.4); Platelet Count 409 10x3/uL (130-400); RBC Distribution Width 14.6 % (11.5-14.5); Red Blood Cell (RBC) Count 4.19 mill/uL (4.20-5.40); White Blood Cell (WBC) Count 6.6 10x3/uL (4.8-10.8)
[2022-06-29 23:35] LABS: BHCG - Serum Negative (NEGATIVE); Pregs Control Background? CLEAR/WHITE (CLR/WHITE); Pregs Control Bar Appear? YES (CONTROL BAR)
[2022-06-29 23:38] LABS: Base Excess-Venous -2.2 mmol/L (-2.0 to 3.0); CO2 Tension (PvCO2) 35.1 mmHg (42.0-51.0); Calcium, Ionized 1.04 mmol/L (1.15-1.33); Chloride 103 mmol/L (98-107); Hemoglobin - Calc 13.6 g/dL (12.0-16.0); Potassium 4.4 mmol/L (3.5-5.1); Sodium 135 mmol/L (138-145); vO2 Saturation-calc 99.7 % (60.0-85.0)
[2022-06-29 23:46] LABS: ALT (SGPT) 13 U/L (8-55); AST (SGOT) 7 U/L (5-34); Albumin 3.8 g/dL (3.5-5.0); Alkaline Phosphatase 115 U/L (40-110); Anion Gap 16 mmol/L (10-20); BUN (Urea Nitrogen) 32 mg/dL (7.0-18.7); Bilirubin, Total 0.2 mg/dL (0.2-1.2); Calc. Creatinine Clearance 0 mL/min (70-130); Calcium 8.7 mg/dL (7.8-10.44); Carbon Dioxide 18 mmol/L (22-29); Chloride 101 mmol/L (98-107); Estimated GFR 39; Globulin 3.5 g/dL (2.4-3.5); Lipase 31 U/L (8-78); Magnesium 1.7 mg/dL (1.6-2.6); Phosphorus 3.4 mg/dL (2.3-4.7); Potassium 4.4 mmol/L (3.5-5.1); Protein, Total 7.3 g/dL (6.0-8.3); Sodium 131 mmol/L (136-145)
[2022-06-29 23:54] LABS: Glucose 441 mg/dL (70-105)
[2022-06-30] MEDS ORDERED: Insulin Regular 300 UNITS/3 ML VIAL ONE (00:14)
[2022-06-30] MEDS ORDERED: diphenhydrAMINE 25 MG CAP ONE (00:21)
[2022-06-30 01:47] LABS: Bacteria/HPF 1+ HPF (None Seen); Bilirubin Negative (Negative); Blood, Urine Small (Negative); Clarity Slightly Cloudy (Clear); Glucose, Urine (Dipstick) 500 mg/dL (Negative); Ketone, Urine Negative (Negative); Leukocyte Small (Negative); Nitrite Negative (Negative); Protein, Urine (Dipstick) > or equal to 300 mg/dL (Neg-Trace); RBC/HPF 0-3 HPF (0-3); Urobilinogen 0.2 mg/dL (Less than 2); WBC/HPF Greater than 50 HPF (0-3); Yeast-Budding 3+ HPF (None Seen); Yeast-Hyphae 3+ HPF (None Seen); pH, Urine 5.5 (5.0-9.0)
== END 2022-06-30 01:22 | disposition home or self-care (01) ==
LOC: MADERS 22:26
DX: E11.65 Type 2 diabetes mellitus with hyperglycemia (principal); B37.41 Candidal cystitis and urethritis; G43.909 Migraine, unspecified, not intractable, without status migrainosus; R11.2 Nausea with vomiting, unspecified; I10 Essential (primary) hypertension; F17.210 Nicotine dependence, cigarettes, uncomplicated; Z79.84 Long term (current) use of oral hypoglycemic drugs
CPT/HCPCS: 36416; 80053; 81003; 81015; 82330; 82435; 82803; 83605; 83690; 83735; 84100; 84132; 84295; 84703; 85014; 85025; 93005; 94760; 96360; 96372; J1815; J2550; J7120; Q0169

== ENCOUNTER 2022-07-23 22:15 | Emergency (ER) | payer OTHER ==
[2022-07-23 23:49] LABS: #Basophils 0.1 thou/uL (0.0-0.2); #Eosinphils 0.1 thou/uL (0.0-0.7); #Lymphocytes 1.6 thou/uL (1.20-3.40); #Monocytes 0.3 thou/uL (0.11-0.59); #Neutrophils 3.3 thou/uL (1.40-6.50); %Basophils 1.9 % (0.0-1.0); %Eosinophils 2.5 % (0.0-10.0); %Lymphocytes 29.2 % (21.0-51.0); %Monocytes 5.8 % (0.0-10.0); %Neutrophils 60.6 % (42.0-75.0); Hemoglobin 12.6 g/dL (12.0-16.0); Mean Corpuscular HGB CONC 32.1 g/dL (32.0-36.0); Mean Corpuscular Volume 87.4 fl (78.0-98.0); Mean Platelet Volume 9.7 fL (7.4-10.4); Platelet Count 256 10x3/uL (130-400); RBC Distribution Width 14.7 % (11.5-14.5); Red Blood Cell (RBC) Count 4.48 mill/uL (4.20-5.40); White Blood Cell (WBC) Count 5.4 10x3/uL (4.8-10.8)
[2022-07-23 23:58] LABS: Base Excess-Venous -6.2 mmol/L (-2.0 to 3.0); CO2 Tension (PvCO2) 35.9 mmHg (42.0-51.0); Calcium, Ionized 1.11 mmol/L (1.15-1.33); Chloride 104 mmol/L (98-107); Hemoglobin - Calc 14.2 g/dL (12.0-16.0); Potassium 5.3 mmol/L (3.5-5.1); Sodium 132 mmol/L (138-145); T. Carbon Dioxide 20.1 mmol/L (22.0-28.0); vO2 Saturation-calc 81.9 % (60.0-85.0)
[2022-07-24 00:02] LABS: ALT (SGPT) 11 U/L (8-55); AST (SGOT) 10 U/L (5-34); Albumin 3.7 g/dL (3.5-5.0); Alkaline Phosphatase 129 U/L (40-110); Anion Gap 15 mmol/L (10-20); BUN (Urea Nitrogen) 28 mg/dL (7.0-18.7); Bilirubin, Total 0.2 mg/dL (0.2-1.2); Calc. Creatinine Clearance 0 mL/min (70-130); Calcium 9.6 mg/dL (7.8-10.44); Carbon Dioxide 18 mmol/L (22-29); Chloride 102 mmol/L (98-107); Estimated GFR 36; Potassium 5.4 mmol/L (3.5-5.1); Protein, Total 7.7 g/dL (6.0-8.3); Sodium 130 mmol/L (136-145)
[2022-07-24 00:14] LABS: Glucose 558 mg/dL (70-105)
[2022-07-24] MEDS ORDERED: Ketorolac Tromethamine 30 MG/ML VIAL ONE (00:15)
[2022-07-24] MEDS ORDERED: Insulin Regular 300 UNITS/3 ML VIAL ONE (00:47)
[2022-07-24] MEDS ORDERED: Diazepam 10 MG/2 ML SYRINGE ONE (00:47)
[2022-07-24 02:07] LABS: ALT (SGPT) 10 U/L (8-55); AST (SGOT) 9 U/L (5-34); Albumin 3.7 g/dL (3.5-5.0); Alkaline Phosphatase 131 U/L (40-110); Anion Gap 16 mmol/L (10-20); BUN (Urea Nitrogen) 26 mg/dL (7.0-18.7); Bilirubin, Total 0.2 mg/dL (0.2-1.2); Calc. Creatinine Clearance 0 mL/min (70-130); Calcium 9.2 mg/dL (7.8-10.44); Carbon Dioxide 16 mmol/L (22-29); Chloride 105 mmol/L (98-107); Estimated GFR 40; Potassium 5.1 mmol/L (3.5-5.1); Protein, Total 7.7 g/dL (6.0-8.3); Sodium 132 mmol/L (136-145)
[2022-07-24 02:08] LABS: Glucose 503 mg/dL (70-105)
== END 2022-07-24 02:17 | disposition home or self-care (01) ==
LOC: MADERS 22:15
DX: E11.65 Type 2 diabetes mellitus with hyperglycemia (principal); M79.672 Pain in left foot; G89.29 Other chronic pain; F17.210 Nicotine dependence, cigarettes, uncomplicated; Z79.84 Long term (current) use of oral hypoglycemic drugs
CPT/HCPCS: 36416; 80053; 82010; 82330; 82803; 83735; 83880; 85025; 96361; 96374; 96375; J1815; J1885; J3360

== ENCOUNTER 2022-10-06 10:27 | Emergency (ER) | payer BC, OTHER ==
[~2022-10-06 10:27] MED LIST changes: +Iopamidol 370 76% 100 ML VIAL ONE; -Lactated Ringer's 1,000 ML BAG ONE
[2022-10-06 11:56] LABS: Bilirubin Negative (Negative); Blood, Urine Small (Negative); Glucose, Urine (Dipstick) Negative (Negative); Ketone, Urine Negative (Negative); Leukocyte Moderate (Negative); Nitrite Negative (Negative); Protein, Urine (Dipstick) 30 mg/dL (Neg-Trace); Urobilinogen 0.2 mg/dL (Less than 2)
[2022-10-06 11:57] LABS: Clarity Cloudy (Clear)
[2022-10-06 12:00] LABS: ALT (SGPT) Less than 7 U/L (8-55); AST (SGOT) 5 U/L (5-34); Albumin 3.7 g/dL (3.5-5.0); Alkaline Phosphatase 115 U/L (40-110); Anion Gap 32 mmol/L (10-20); Bilirubin, Total 0.3 mg/dL (0.2-1.2); Calc. Creatinine Clearance 0 mL/min (70-130); Calcium 9.5 mg/dL (7.8-10.44); Carbon Dioxide 13 mmol/L (22-29); Chloride 100 mmol/L (98-107); Estimated GFR 11; Globulin 4.4 g/dL (2.4-3.5); Glucose 292 mg/dL (70-105); Potassium 4.4 mmol/L (3.5-5.1); Protein, Total 8.1 g/dL (6.0-8.3); Sodium 141 mmol/L (136-145)
[2022-10-06 12:06] LABS: Amphetamine Not Detected (NotDetected); Benzodiazepine Screen Not Detected (NotDetected); Cocaine Metabolite Screen Not Detected (NotDetected); Methadone Not Detected (NotDetected); Methamphetamine Not Detected (NotDetected); Opiate Screen Detected (NotDetected); Phencyclidine (PCP) Not Detected (NotDetected); THC/Cannabinoid Screen Not Detected (NotDetected); Tricyclic Screen Not Detected (NotDetected)
[2022-10-06 12:07] LABS: Barbiturates Screen Not Detected (NotDetected); Oxycodone Screen Not Detected (NotDetected)
[2022-10-06 12:08] LABS: Bacteria/HPF Rare-Few HPF (None Seen); CAUTI Indications for Culture Dysuria,urgency,freq; RBC/HPF 0-3 HPF (0-3); WBC/HPF Greater Than 50 HPF (0-3); Yeast-Budding 1+ HPF (None Seen)
[2022-10-06 12:09] LABS: Yeast-Hyphae 1+ HPF (None Seen)
[2022-10-06 12:10] LABS: Urine Culture Reflex Yes Yes
[2022-10-06 12:18] LABS: BUN (Urea Nitrogen) 142 mg/dL (7.0-18.7)
[2022-10-06 12:33] LABS: Acetaminophen Less than 10 mcg/mL (10.0-30.0); Alcohol Less than 10.0 mg/dL (Less than 10); Lipase 44 U/L (8-78); Magnesium 2.8 mg/dL (1.6-2.6); Salicylate Less than 8.0 mg/dL (15.0-30.0)
[2022-10-06 12:54] LABS: Eosinophils 1 % (0-10); Lymphocytes 7 % (21-51); MDiff Complete? YES; Manual Diff?? YES; Mean Corpuscular HGB CONC 31.7 g/dL (32.0-36.0); Mean Corpuscular Hemoglobin 26.9 pg (27.0-31.0); Mean Platelet Volume 7.5 fL (7.4-10.4); Monocytes 2 % (0-10); Neutrophil 89 % (42-75); Platelet Adequacy Comment Appears Adequate; Platelet Count 363 10x3/uL (130-400); RBC Distribution Width 15.7 % (11.5-14.5); Reactive Lymphocytes 1 % (0-10); Red Blood Cell (RBC) Count 4.07 mill/uL (4.20-5.40); White Blood Cell (WBC) Count 14.3 10x3/uL (4.8-10.8)
[2022-10-06 12:55] LABS: BHCG - Serum Negative (NEGATIVE); Pregs Control Background? CLEAR/WHITE (CLR/WHITE); Pregs Control Bar Appear? YES (CONTROL BAR)
[2022-10-06 13:13] LABS: Base Excess-Venous -12.3 mmol/L (-2.0 to 3.0); Bicarbonate (HCO3v) 14.1 mmol/L (22.0-28.0); CO2 Tension (PvCO2) 33.1 mmHg (42.0-51.0); Calcium, Ionized 0.93 mmol/L (1.15-1.33); Chloride 111 mmol/L (98-107); Hemoglobin - Calc 12.3 g/dL (12.0-16.0); Potassium 4.5 mmol/L (3.5-5.1); Sodium 136 mmol/L (138-145); T. Carbon Dioxide 15.1 mmol/L (22.0-28.0); vO2 Saturation-calc 99.6 % (60.0-85.0)
[2022-10-06] MEDS ORDERED: Promethazine HCl 25 MG/ML VIAL ONE (13:20)
[2022-10-06] MEDS ORDERED: Piperacillin/Tazobactam 4.5 GM VIAL ONE (13:20)
[2022-10-06] MEDS ORDERED: Sodium Chloride 0.9% 50 ML ONE (13:20)
[2022-10-06] MEDS ORDERED: Sodium Chloride 0.9% 100 ML ONE ×2 (13:20→13:48)
[2022-10-06] MEDS ORDERED: Sodium Chloride 0.9% 1,000 ML ONE (13:48)
[2022-10-06] MEDS ORDERED: Pantoprazole 40 MG VIAL ONE (13:48)
[2022-10-06] MEDS ORDERED: Insulin Regular 300 UNITS/3 ML VIAL ONE (15:23)
== END 2022-10-06 16:25 | disposition short-term general hospital (02) ==
LOC: MADERS 10:27
DX: A41.9 Sepsis, unspecified organism (principal); E87.20 Acidosis, unspecified; N17.9 Acute kidney failure, unspecified; E83.41 Hypermagnesemia; K52.89 Other specified noninfective gastroenteritis and colitis; N39.0 Urinary tract infection, site not specified; F17.210 Nicotine dependence, cigarettes, uncomplicated
CPT/HCPCS: 36416; 74177; 80053; 80306; 80307; 81001; 82010; 82271; 82330; 82803; 83605; 83690; 83735; 83880; 84703; 85025; 87040; 87086; 93005; 96361; 96365; 96367; 96368; C9113; J1815; J2543; J2550; J3490; J7050; Q9967

== ENCOUNTER 2022-11-12 12:49 | Emergency (ER) | payer OTHER ==
[2022-11-12] MEDS ORDERED: Sodium Chloride 0.9% 1,000 ML ONE (13:50)
[2022-11-12 13:57] LABS: ALT (SGPT) 8 U/L (8-55); AST (SGOT) 5 U/L (5-34); Albumin 3.8 g/dL (3.5-5.0); Alkaline Phosphatase 158 U/L (40-110); Anion Gap 16 mmol/L (10-20); BUN (Urea Nitrogen) 55 mg/dL (7.0-18.7); Bilirubin, Total 0.3 mg/dL (0.2-1.2); Calc. Creatinine Clearance 0 mL/min (70-130); Calcium 9.8 mg/dL (7.8-10.44); Carbon Dioxide 23 mmol/L (22-29); Chloride 98 mmol/L (98-107); Estimated GFR 20; Globulin 4.4 g/dL (2.4-3.5); Lipase 28 U/L (8-78); Magnesium 2.1 mg/dL (1.6-2.6); Potassium 3.9 mmol/L (3.5-5.1); Protein, Total 8.2 g/dL (6.0-8.3); Sodium 133 mmol/L (136-145)
[2022-11-12] MEDS ORDERED: diphenhydrAMINE 50 MG/ML VIAL ONE (14:02)
[2022-11-12 14:19] LABS: Band 7 % (5-11); Hemoglobin 10.3 g/dL (12.0-16.0); Hypochromia SLIGHT = 6-15 cells (100X) (0-5/hpf); Lymphocytes 15 % (21-51); MDiff Complete? YES; Mean Corpuscular HGB CONC 31.6 g/dL (32.0-36.0); Mean Corpuscular Hemoglobin 27.1 pg (27.0-31.0); Mean Platelet Volume 7.9 fL (7.4-10.4); Monocytes 3 % (0-10); Neutrophil 75 % (42-75); Platelet Adequacy Comment Appears Adequate; Platelet Count 340 10x3/uL (130-400); RBC Distribution Width 15.3 % (11.5-14.5); Red Blood Cell (RBC) Count 3.78 mill/uL (4.20-5.40); White Blood Cell (WBC) Count 8.3 10x3/uL (4.8-10.8)
[2022-11-12 14:26] LABS: Glucose 442 mg/dL (70-105)
== END 2022-11-12 15:10 | disposition left against medical advice (07) ==
LOC: MADERS 12:49
DX: R10.9 Unspecified abdominal pain (principal); R11.2 Nausea with vomiting, unspecified; E11.22 Type 2 diabetes mellitus with diabetic chronic kidney disease; I12.9 Hypertensive chronic kidney disease with stage 1 through stage 4 chronic kidney disease, or unspecified chronic kidney disease; N18.9 Chronic kidney disease, unspecified; Z79.4 Long term (current) use of insulin; F17.210 Nicotine dependence, cigarettes, uncomplicated
CPT/HCPCS: 80053; 83605; 83690; 83735; 85025; 96361; 96374; J1200; J7050

== ENCOUNTER 2022-11-19 19:36 | Emergency (ER) | payer OTHER ==
[2022-11-19] MEDS ORDERED: Ketorolac Tromethamine 30 MG/ML VIAL ONE (20:17)
[2022-11-19] MEDS ORDERED: Cyclobenzaprine 10 MG TAB ONE (20:17)
[2022-11-19] MEDS ORDERED: Promethazine HCl 6.25 MG/5 ML Syrup ONE (20:49)
[2022-11-19 21:24] LABS: #Basophils 0.1 thou/uL (0.0-0.2); #Eosinphils 0.2 thou/uL (0.0-0.7); #Lymphocytes 1.2 thou/uL (1.20-3.40); #Monocytes 0.5 thou/uL (0.11-0.59); #Neutrophils 4.1 thou/uL (1.40-6.50); %Eosinophils 2.6 % (0.0-10.0); %Lymphocytes 20.1 % (21.0-51.0); %Monocytes 8.8 % (0.0-10.0); %Neutrophils 67.6 % (42.0-75.0); Hemoglobin 9.9 g/dL (12.0-16.0); Mean Corpuscular HGB CONC 31.7 g/dL (32.0-36.0); Mean Corpuscular Hemoglobin 27.4 pg (27.0-31.0); Mean Corpuscular Volume 86.4 fl (78.0-98.0); Mean Platelet Volume 7.7 fL (7.4-10.4); Platelet Count 355 10x3/uL (130-400); RBC Distribution Width 15.6 % (11.5-14.5); Red Blood Cell (RBC) Count 3.62 mill/uL (4.20-5.40); White Blood Cell (WBC) Count 6.1 10x3/uL (4.8-10.8)
[2022-11-19 21:40] LABS: Anion Gap 17 mmol/L (10-20); BUN (Urea Nitrogen) 55 mg/dL (7.0-18.7); Calc. Creatinine Clearance 0 mL/min (70-130); Calcium 8.9 mg/dL (7.8-10.44); Carbon Dioxide 17 mmol/L (22-29); Chloride 98 mmol/L (98-107); Estimated GFR 17; Potassium 4.2 mmol/L (3.5-5.1); Sodium 128 mmol/L (136-145)
[2022-11-19 21:42] LABS: Glucose 608 mg/dL (70-105)
[2022-11-19] MEDS ORDERED: Insulin Regular 300 UNITS/3 ML VIAL ONE (22:03)
== END 2022-11-19 22:10 | disposition home or self-care (01) ==
LOC: MADERS 19:36
DX: M54.2 Cervicalgia (principal); M79.672 Pain in left foot; E11.9 Type 2 diabetes mellitus without complications; Z79.4 Long term (current) use of insulin; I10 Essential (primary) hypertension; F17.210 Nicotine dependence, cigarettes, uncomplicated; Z79.899 Other long term (current) drug therapy; Z79.84 Long term (current) use of oral hypoglycemic drugs
CPT/HCPCS: 36415; 36416; 80048; 85025; J1815; J1885

== ENCOUNTER 2023-01-09 11:31 | Emergency (ER) | payer OTHER ==
[2023-01-09] MEDS ORDERED: Sodium Chloride 0.9% 1,000 ML ONE (12:26)
[2023-01-09] MEDS ORDERED: Promethazine HCl 25 MG/ML VIAL ONE (12:26)
[2023-01-09] MEDS ORDERED: Morphine 4 MG/ML VIAL ONE (12:26)
[2023-01-09 12:31] LABS: Base Excess-Venous -6.4 mmol/L (-2.0 to 3.0); Bicarbonate (HCO3v) 18.8 mmol/L (22.0-28.0); CO2 Tension (PvCO2) 35.3 mmHg (42.0-51.0); Calcium, Ionized 1.19 mmol/L (1.15-1.33); Chloride 109 mmol/L (98-107); Hemoglobin - Calc 10.1 g/dL (12.0-16.0); Potassium 3.9 mmol/L (3.5-5.1); Sodium 135 mmol/L (138-145); T. Carbon Dioxide 19.9 mmol/L (22.0-28.0); vO2 Saturation-calc 94.8 % (60.0-85.0)
[2023-01-09 12:33] LABS: BHCG - Serum Negative (NEGATIVE); Pregs Control Background? CLEAR/WHITE (CLR/WHITE); Pregs Control Bar Appear? YES (CONTROL BAR)
[2023-01-09 12:45] LABS: Hematocrit 27.8 % (36.0-47.0); Hemoglobin 8.7 g/dL (12.0-16.0); MDiff Complete? YES; Manual Diff?? YES; Mean Corpuscular HGB CONC 31.4 g/dL (32.0-36.0); Mean Corpuscular Hemoglobin 27.3 pg (27.0-31.0); Mean Platelet Volume 6.7 fL (7.4-10.4); Platelet Count 351 10x3/uL (130-400); RBC Distribution Width 15.8 % (11.5-14.5); White Blood Cell (WBC) Count 6.3 10x3/uL (4.8-10.8)
[2023-01-09 12:46] LABS: ALT (SGPT) 10 U/L (8-55); AST (SGOT) 6 U/L (5-34); Albumin 3.5 g/dL (3.5-5.0); Alkaline Phosphatase 89 U/L (40-110); Anion Gap 16 mmol/L (10-20); Anisocytosis SLIGHT = 6-15 cells (100X) (0-5/hpf); BUN (Urea Nitrogen) 44 mg/dL (7.0-18.7); Band 2 % (5-11); Bilirubin, Total 0.2 mg/dL (0.2-1.2); Calc. Creatinine Clearance 0 mL/min (70-130); Calcium 8.9 mg/dL (7.8-10.44); Carbon Dioxide 17 mmol/L (22-29); Chloride 104 mmol/L (98-107); Estimated GFR 29; Globulin 3.5 g/dL (2.4-3.5); Lipase 102 U/L (8-78); Lymphocytes 12 % (21-51); Magnesium 1.7 mg/dL (1.6-2.6); Monocytes 5 % (0-10); Neutrophil 79 % (42-75); Potassium 3.9 mmol/L (3.5-5.1); Sodium 133 mmol/L (136-145)
[2023-01-09 12:47] LABS: Platelet Adequacy Comment Appears Adequate
[2023-01-09 12:51] LABS: Glucose 440 mg/dL (70-105)
[2023-01-09] MEDS ORDERED: Lidocaine 4% Patch ONE (14:12)
[2023-01-09] MEDS ORDERED: Dicyclomine 20 MG/2 ML VIAL ONE (14:12)
[2023-01-09] MEDS ORDERED: Acetaminophen 325 MG TAB ONE (14:12)
[2023-01-09 14:26] LABS: Bilirubin Negative (Negative); Blood, Urine Trace (Negative); Clarity Cloudy (Clear); Glucose, Urine (Dipstick) 250 mg/dL (Negative); Ketone, Urine Negative (Negative); Leukocyte Moderate (Negative); Nitrite Negative (Negative); Protein, Urine (Dipstick) Negative (Neg-Trace); Urobilinogen 0.2 mg/dL (Less than 2); pH, Urine 5.5 (5.0-9.0)
[2023-01-09] MEDS ORDERED: Orphenadrine Citrate 60 MG/2 ML VIAL ONE (14:26)
[2023-01-09 14:28] LABS: Bacteria/HPF Rare-Few HPF (None Seen); CAUTI Indications for Culture Pelvic or flank pain; RBC/HPF 0-3 HPF (0-3); Squamous Epithelial 0-3 HPF (0-3); WBC/HPF 21-50 HPF (0-3); Yeast-Budding 2+ HPF (None Seen); Yeast-Hyphae 2+ HPF (None Seen)
[2023-01-09 14:29] LABS: Urine Culture Reflex Yes Yes
[2023-01-09] MEDS ORDERED: cefTRIAXone (ROCEPHIN) 2 GM VIAL ONE (14:55)
[2023-01-09] MEDS ORDERED: Sodium Chloride 0.9% 100 ML ONE (14:55)
== END 2023-01-09 15:21 | disposition home or self-care (01) ==
LOC: MADERS 11:31
DX: N10 Acute pyelonephritis (principal); E11.22 Type 2 diabetes mellitus with diabetic chronic kidney disease; I12.9 Hypertensive chronic kidney disease with stage 1 through stage 4 chronic kidney disease, or unspecified chronic kidney disease; N18.9 Chronic kidney disease, unspecified; K56.7 Ileus, unspecified; Z79.4 Long term (current) use of insulin; F17.210 Nicotine dependence, cigarettes, uncomplicated; Z79.899 Other long term (current) drug therapy; Z79.82 Long term (current) use of aspirin
CPT/HCPCS: 74176; 80053; 81001; 82010; 82330; 82803; 83605; 83690; 83735; 84703; 85025; 87086; 93005; 94760; 96361; 96365; 96372; 96375; J0696; J2270; J2360; J2550; J3490; J7050

== ENCOUNTER 2023-10-13 16:49 | Emergency (ER) | payer OTHER | END 2023-10-13 17:52 | disposition home or self-care (01) | LOC: MADERS 16:49 | DX: S90.425A Blister (nonthermal), left lesser toe(s), initial encounter (principal); M54.2 Cervicalgia; I10 Essential (primary) hypertension; E11.9 Type 2 diabetes mellitus without complications; F17.210 Nicotine dependence, cigarettes, uncomplicated; Z79.4 Long term (current) use of insulin; X58.XXXA Exposure to other specified factors, initial encounter | CPT/HCPCS: 99283 ==

== ENCOUNTER 2023-12-23 08:50 | Emergency (ER) | payer OTHER | END 2023-12-23 10:10 | disposition left against medical advice (07) | LOC: MADERS 08:50 | DX: M86.172 Other acute osteomyelitis, left ankle and foot (principal); E11.52 Type 2 diabetes mellitus with diabetic peripheral angiopathy with gangrene; I96 Gangrene, not elsewhere classified; I10 Essential (primary) hypertension; F17.210 Nicotine dependence, cigarettes, uncomplicated; Z79.899 Other long term (current) drug therapy; Z79.84 Long term (current) use of oral hypoglycemic drugs; Z79.82 Long term (current) use of aspirin | CPT/HCPCS: 93005; 94760 ==

== ENCOUNTER 2023-12-29 11:59 | Emergency (ER) | payer OTHER ==
[2023-12-29] MEDS ORDERED: Sodium Chloride 0.9% 1,000 ML ONE (14:23)
[2023-12-29] MEDS ORDERED: Cefepime 2 GM VIAL ONE (14:23)
[2023-12-29] MEDS ORDERED: Morphine 4 MG/ML VIAL ONE (14:25)
[2023-12-29] MEDS ORDERED: Morphine 2 MG/ML VIAL ONE (14:25)
[2023-12-29] MEDS ORDERED: Promethazine HCl 25 MG/ML VIAL ONE (14:25)
[2023-12-29 14:28] LABS: INR-International Normal Ratio 1.1; Prothrombin Time 14.6 sec (12.0-14.7)
[2023-12-29 14:30] LABS: PTT 42.4 sec (22.9-36.1)
[2023-12-29 14:37] LABS: Hematocrit 24.8 % (36.0-47.0); Hemoglobin 7.4 g/dL (12.0-16.0); Manual Diff?? YES; Mean Corpuscular HGB CONC 29.8 g/dL (32.0-36.0); Mean Corpuscular Hemoglobin 25.6 pg (27.0-31.0); Mean Corpuscular Volume 85.8 fl (78.0-98.0); Mean Platelet Volume 5.8 fL (7.4-10.4); Platelet Count 408 10x3/uL (130-400); RBC Distribution Width 14.4 % (11.5-14.5); Red Blood Cell (RBC) Count 2.89 mill/uL (4.20-5.40); White Blood Cell (WBC) Count 15.4 10x3/uL (4.8-10.8)
[2023-12-29 14:42] LABS: ALT (SGPT) Less than 7 U/L (8-55); AST (SGOT) 8 U/L (5-34); Albumin 1.5 g/dL (3.5-5.0); Alkaline Phosphatase 128 U/L (40-110); Anion Gap 19 mmol/L (10-20); BUN (Urea Nitrogen) 20 mg/dL (7.0-18.7); Bilirubin, Total Less than 0.2 mg/dL (0.2-1.2); Calc. Creatinine Clearance 0 mL/min (70-130); Carbon Dioxide 19 mmol/L (22-29); Chloride 99 mmol/L (98-107); Estimated GFR 19; Globulin 4.7 g/dL (2.4-3.5); Hypochromia SLIGHT = 6-15 cells (100X) (0-5/hpf); Lymphocytes 4 % (21-51); MDiff Complete? YES; Monocytes 4 % (0-10); Neutrophil 88 % (42-75); Potassium 4.4 mmol/L (3.5-5.1); Protein, Total 6.2 g/dL (6.0-8.3); Reactive Lymphocytes 4 % (0-10); Sodium 133 mmol/L (136-145)
[2023-12-29 14:43] LABS: Platelet Adequacy Comment Appears Adequate; Polychromasia SLIGHT = 2-3 cells (100X) (0-2/hpf)
[2023-12-29 14:47] LABS: Glucose 617 mg/dL (70-105)
[2023-12-29] MEDS ORDERED: Clindamycin/D5W 900 mg/50 ml Premix Bag ONE (15:05)
[2023-12-29 15:09] LABS: Base Excess-Venous -4.7 mmol/L (-2.0 to 3.0); Bicarbonate (HCO3v) 22.6 mmol/L (22.0-28.0); CO2 Tension (PvCO2) 52.1 mmHg (42.0-51.0); Calcium, Ionized 1.13 mmol/L (1.15-1.33); Chloride 100 mmol/L (98-107); Hemoglobin - Calc 8.5 g/dL (12.0-16.0); Sodium 131 mmol/L (138-145); T. Carbon Dioxide 24.2 mmol/L (22.0-28.0); vO2 Saturation-calc 96.5 % (60.0-85.0)
== END 2023-12-29 15:25 | disposition short-term general hospital (02) ==
LOC: MADERS 11:59
DX: M86.172 Other acute osteomyelitis, left ankle and foot (principal); A48.0 Gas gangrene; E11.9 Type 2 diabetes mellitus without complications; I10 Essential (primary) hypertension; F17.210 Nicotine dependence, cigarettes, uncomplicated
CPT/HCPCS: 80053; 82010; 82330; 82803; 83605; 85025; 85610; 85730; 86140; 87040; 87070; 87077; 87149; 87205; 93005; 96365; 96375; J0692; J2272; J2550; J3490; J7030

== ENCOUNTER 2024-03-25 23:27 | Emergency (ER) | payer OTHER ==
[2024-03-26] MEDS ORDERED: HYDROcodone/Acetaminophen 10/325 mg Tablet ONE (00:13)
[2024-03-26] MEDS ORDERED: Promethazine 25 MG TAB ONE (00:13)
[2024-03-26] MEDS ORDERED: fentaNYL 50 mcg/mL 1 mL Vial ONE (00:35)
[2024-03-26] MEDS ORDERED: Insulin Regular, Human 100 UNIT/ML 10 ML VIAL ONE (00:36)
== END 2024-03-26 02:54 | disposition home or self-care (01) ==
LOC: MADERS 23:27
DX: R11.0 Nausea (principal); E11.65 Type 2 diabetes mellitus with hyperglycemia; E11.22 Type 2 diabetes mellitus with diabetic chronic kidney disease; N18.6 End stage renal disease; Z99.2 Dependence on renal dialysis; Z87.891 Personal history of nicotine dependence
CPT/HCPCS: 36416; 72170; 96374; 96375; J1815; J3010; Q0169

== ENCOUNTER 2024-04-03 17:35 | Emergency (ER) | payer OTHER ==
[2024-04-03] MEDS ORDERED: Promethazine 25 MG TAB ONE (19:23)
== END 2024-04-03 20:26 | disposition left against medical advice (07) ==
LOC: MADERS 17:35
DX: M54.9 Dorsalgia, unspecified (principal); M54.2 Cervicalgia; I12.0 Hypertensive chronic kidney disease with stage 5 chronic kidney disease or end stage renal disease; N18.6 End stage renal disease; F17.210 Nicotine dependence, cigarettes, uncomplicated; Z99.2 Dependence on renal dialysis; W05.0XXA Fall from non-moving wheelchair, initial encounter
CPT/HCPCS: 99283; Q0169

== ENCOUNTER 2024-07-08 18:03 | Emergency (ER) | payer MEDICARE, MEDICAID ==
[2024-07-08] MEDS ORDERED: Morphine 4 MG/ML VIAL ONE (18:49)
[2024-07-08] MEDS ORDERED: Promethazine HCl 25 MG/ML VIAL ONE (18:49)
[2024-07-08 19:01] LABS: Hematocrit 34.4 % (36.0-47.0); Hemoglobin 10.8 g/dL (12.0-16.0); Mean Corpuscular HGB CONC 31.4 g/dL (32.0-36.0); Mean Corpuscular Hemoglobin 29.9 pg (27.0-31.0); Mean Corpuscular Volume 95.3 fl (78.0-98.0); Mean Platelet Volume 7.3 fL (7.4-10.4); Platelet Count 250 10x3/uL (130-400); RBC Distribution Width 19.8 % (11.5-14.5); Red Blood Cell (RBC) Count 3.61 mill/uL (4.20-5.40); White Blood Cell (WBC) Count 7.4 10x3/uL (4.8-10.8)
[2024-07-08 19:12] LABS: ALT (SGPT) 10 U/L (Less than 34); AST (SGOT) 13 U/L (11-34); Albumin 2.7 g/dL (3.1-4.5); Alkaline Phosphatase 143 U/L (40-110); Anion Gap 17 mmol/L (10-20); BUN (Urea Nitrogen) 28 mg/dL (7.0-18.7); Bilirubin, Total 0.2 mg/dL (0.3-1.2); Calc. Creatinine Clearance 0 mL/min (70-130); Calcium 8.3 mg/dL (7.8-10.44); Carbon Dioxide 17 mmol/L (22-29); Chloride 99 mmol/L (98-107); Estimated GFR 13; Globulin 3.7 g/dL (2.4-3.5); Magnesium 1.9 mg/dL (1.6-2.6); Potassium 3.8 mmol/L (3.5-5.1); Protein, Total 6.4 g/dL (6.0-8.3); Sodium 129 mmol/L (136-145)
[2024-07-08 19:13] LABS: Critical Call Chemistry ERS.JD@1913; Glucose 796 mg/dL (70-105)
[2024-07-08] MEDS ORDERED: Insulin Regular, Human 100 UNIT/ML 10 ML VIAL ONE (19:15)
[2024-07-08 19:16] LABS: Lymphocytes 6 % (21-51); MDiff Complete? YES; Manual Diff?? YES; Monocytes 2 % (0-10); Neutrophil 87 % (42-75); Platelet Adequacy Comment Appears Adequate; Reactive Lymphocytes 5 % (0-10)
[2024-07-08 19:17] LABS: Anisocytosis SLIGHT = 6-15 cells (100X) (0-5/hpf); Base Excess-Venous -5.6 mmol/L (-2.0 to 3.0); Bicarbonate (HCO3v) 21.4 mmol/L (22.0-28.0); Calcium, Ionized 1.12 mmol/L (1.15-1.33); Chloride 102 mmol/L (98-107); Hypochromia SLIGHT = 6-15 cells (100X) (0-5/hpf); Poikilocytosis SLIGHT = 6-15 cells (100X) (0-5/hpf); Polychromasia MODERATE = 3-4 cells (100X) (0-2/hpf); Potassium 3.8 mmol/L (3.5-5.1); Sodium 131 mmol/L (138-145); T. Carbon Dioxide 22.9 mmol/L (22.0-28.0); vO2 Saturation-calc 91.2 % (60.0-85.0)
[2024-07-08] MEDS ORDERED: diphenhydrAMINE 50 MG/ML VIAL ONE (19:51)
[2024-07-08] MEDS ORDERED: Metoprolol Tartrate 5 MG (5 mL) VIAL ONE (19:51)
[2024-07-08] MEDS ORDERED: Lidocaine 4% Patch ONE (20:07)
== END 2024-07-08 21:00 | disposition home or self-care (01) ==
LOC: MADERS 18:03
DX: T87.89 Other complications of amputation stump (principal); M79.604 Pain in right leg; M79.605 Pain in left leg; I12.0 Hypertensive chronic kidney disease with stage 5 chronic kidney disease or end stage renal disease; E11.22 Type 2 diabetes mellitus with diabetic chronic kidney disease; N18.6 End stage renal disease; E11.65 Type 2 diabetes mellitus with hyperglycemia; F17.210 Nicotine dependence, cigarettes, uncomplicated; Z99.2 Dependence on renal dialysis; Z79.899 Other long term (current) drug therapy; Z79.4 Long term (current) use of insulin; W04.XXXA Fall while being carried or supported by other persons, initial encounter
CPT/HCPCS: 36416; 72131; 72170; 80053; 82010; 82330; 82435; 82803; 83735; 84132; 84295; 85014; 85025; 93005; 94760; 96361; 96365; 96375; J1200; J1815; J2270; J2550

== ENCOUNTER 2024-08-12 18:02 | Emergency (ER) | payer MEDICARE, MEDICAID ==
[2024-08-12] MEDS ORDERED: Morphine 10 MG/ML VIAL ONE (18:28)
[2024-08-12] MEDS ORDERED: Promethazine HCl 25 MG SUPP ONE (18:29)
[2024-08-12 19:52] LABS: Prothrombin Time 12.8 sec (12.0-14.7)
[2024-08-12 19:53] LABS: Base Excess-Venous -1.8 mmol/L (-2.0 to 3.0); CO2 Tension (PvCO2) 43.6 mmHg (42.0-51.0); Calcium, Ionized 1.11 mmol/L (1.15-1.33); Chloride 102 mmol/L (98-107); Hemoglobin - Calc 14.2 g/dL (12.0-16.0); PTT 32.6 sec (22.9-36.1); Potassium 4.8 mmol/L (3.5-5.1); Sodium 135 mmol/L (138-145); T. Carbon Dioxide 25.3 mmol/L (22.0-28.0); vO2 Saturation-calc 59.2 % (60.0-85.0)
[2024-08-12 19:57] LABS: ALT (SGPT) 28 U/L (Less than 34); AST (SGOT) 17 U/L (11-34); Albumin 2.2 g/dL (3.1-4.5); Alkaline Phosphatase 194 U/L (40-110); Anion Gap 18 mmol/L (10-20); BUN (Urea Nitrogen) 46 mg/dL (7.0-18.7); Band 2 % (5-11); Bilirubin, Total 0.2 mg/dL (0.3-1.2); Calc. Creatinine Clearance 0 mL/min (70-130); Calcium 8.4 mg/dL (7.8-10.44); Carbon Dioxide 18 mmol/L (22-29); Chloride 100 mmol/L (98-107); Eosinophils 1 % (0-10); Estimated GFR 14; Globulin 4.4 g/dL (2.4-3.5); Lymphocytes 7 % (21-51); MDiff Complete? YES; Magnesium 1.8 mg/dL (1.6-2.6); Microcytosis SLIGHT = 6-15 cells (100X) (0-5/hpf); Monocytes 4 % (0-10); Neutrophil 86 % (42-75); Potassium 4.6 mmol/L (3.5-5.1); Protein, Total 6.6 g/dL (6.0-8.3); Sodium 131 mmol/L (136-145)
[2024-08-12 19:58] LABS: Hematocrit 37.9 % (36.0-47.0); Hemoglobin 10.7 g/dL (12.0-16.0); Mean Corpuscular HGB CONC 28.2 g/dL (32.0-36.0); Mean Corpuscular Hemoglobin 25.9 pg (27.0-31.0); Mean Platelet Volume 6.6 fL (7.4-10.4); Platelet Count 337 10x3/uL (130-400); RBC Distribution Width 19.3 % (11.5-14.5); Red Blood Cell (RBC) Count 4.12 mill/uL (4.20-5.40); White Blood Cell (WBC) Count 7.9 10x3/uL (4.8-10.8)
[2024-08-12 19:59] LABS: Critical Call Chemistry EMS.CLJ@1953; Glucose 545 mg/dL (70-105)
[2024-08-12] MEDS ORDERED: Morphine 4 MG/ML VIAL ONE (20:26)
[2024-08-12] MEDS ORDERED: Vancomycin HCl 500 MG VIAL ONE ×2 (20:26→20:27)
[2024-08-12] MEDS ORDERED: Vancomycin 1 GM VIAL ONE (20:27)
[2024-08-12] MEDS ORDERED: Insulin Regular, Human 100 UNIT/ML 10 ML VIAL ONE (20:27)
[2024-08-12] MEDS ORDERED: Cefepime 2 GM VIAL ONE (20:27)
[2024-08-12] MEDS ORDERED: Sodium Chloride 0.9% 250 ML 250 ML ONE (20:27)
[2024-08-12] MEDS ORDERED: Sodium Chloride 0.9% 100 ML ONE ×2 (20:27)
[2024-08-12 21:21] LABS: Bilirubin Negative (Negative); Blood, Urine Large (Negative); Clarity Cloudy (Clear); Glucose, Urine (Dipstick) 500 mg/dL (Negative); Ketone, Urine Negative (Negative); Leukocyte Small (Negative); Nitrite Negative (Negative); Protein, Urine (Dipstick) > or equal to 300 mg/dL (Neg-Trace); Specific Gravity, Urine 1.025 (1.005-1.030); Urobilinogen 0.2 mg/dL (Less than 2)
[2024-08-12 21:25] LABS: CAUTI Indications for Culture Dysuria,urgency,freq; Squamous Epithelial 0-3 HPF (0-3); WBC/HPF Greater than 50 HPF (0-3)
[2024-08-12 21:26] LABS: Bacteria/HPF 1+ HPF (None Seen); Urine Culture Reflex Yes Yes
== END 2024-08-13 01:38 | disposition short-term general hospital (02) ==
LOC: MADERS 18:02
DX: L03.115 Cellulitis of right lower limb (principal); E11.65 Type 2 diabetes mellitus with hyperglycemia; E11.22 Type 2 diabetes mellitus with diabetic chronic kidney disease; N18.9 Chronic kidney disease, unspecified; R60.1 Generalized edema; M85.851 Other specified disorders of bone density and structure, right thigh; Z99.2 Dependence on renal dialysis; I12.9 Hypertensive chronic kidney disease with stage 1 through stage 4 chronic kidney disease, or unspecified chronic kidney disease; F17.210 Nicotine dependence, cigarettes, uncomplicated; Z79.84 Long term (current) use of oral hypoglycemic drugs; Z79.4 Long term (current) use of insulin; Z79.899 Other long term (current) drug therapy; Z79.82 Long term (current) use of aspirin
CPT/HCPCS: 51701; 73700; 74176; 80053; 81001; 82010; 82330; 82435; 82803; 82962; 83605; 83735; 84132; 84295; 85014; 85025; 85610; 85730; 86140; 87040; 87086; 94760; 96365; 96366; 96367; 96372; 96375; 99285; J0692; J1815; J2270 ×2; J3370 ×2; J7050; 36416

== ENCOUNTER 2024-10-17 03:21 | Emergency (ER) | payer MEDICARE, MEDICAID ==
[2024-10-17] MEDS ORDERED: Insulin Regular, Human 100 UNIT/ML 10 ML VIAL ONE (04:19)
[2024-10-17] MEDS ORDERED: Promethazine HCl 25 MG/ML VIAL ONE (04:19)
[2024-10-17] MEDS ORDERED: Pantoprazole 40 MG VIAL ONE (04:19)
[2024-10-17 04:28] LABS: Anisocytosis SLIGHT = 6-15 cells (100X) (0-5/hpf); Band 2 % (5-11); Eosinophils 3 % (0-10); Hematocrit 29.7 % (36.0-47.0); Hemoglobin 8.4 g/dL (12.0-16.0); Hypochromia SLIGHT = 6-15 cells (100X) (0-5/hpf); Lymphocytes 11 % (21-51); MDiff Complete? YES; Mean Corpuscular HGB CONC 28.4 g/dL (32.0-36.0); Mean Corpuscular Hemoglobin 25.5 pg (27.0-31.0); Mean Platelet Volume 6.5 fL (7.4-10.4); Microcytosis SLIGHT = 6-15 cells (100X) (0-5/hpf); Monocytes 5 % (0-10); Neutrophil 79 % (42-75); Platelet Count 438 10x3/uL (130-400); RBC Distribution Width 21.9 % (11.5-14.5)
[2024-10-17 04:29] LABS: Platelet Adequacy Comment Platelets Increased
[2024-10-17 04:33] LABS: Base Excess-Venous -5.1 mmol/L (-2.0 to 3.0); Bicarbonate (HCO3v) 21.2 mmol/L (22.0-28.0); CO2 Tension (PvCO2) 44.1 mmHg (42.0-51.0); Calcium, Ionized 1.11 mmol/L (1.15-1.33); Chloride 101 mmol/L (98-107); Hemoglobin - Calc 10.4 g/dL (12.0-16.0); Potassium 5.4 mmol/L (3.5-5.1); Sodium 132 mmol/L (138-145); T. Carbon Dioxide 22.6 mmol/L (22.0-28.0); vO2 Saturation-calc 95.7 % (60.0-85.0)
[2024-10-17 04:35] LABS: ALT (SGPT) 22 U/L (Less than 34); AST (SGOT) 24 U/L (11-34); Albumin 2.7 g/dL (3.1-4.5); Alkaline Phosphatase 238 U/L (40-110); Anion Gap 18 mmol/L (10-20); BUN (Urea Nitrogen) 34 mg/dL (7.0-18.7); Bilirubin, Total 0.1 mg/dL (0.3-1.2); Calc. Creatinine Clearance 0 mL/min (70-130); Calcium 8.2 mg/dL (7.8-10.44); Carbon Dioxide 20 mmol/L (22-29); Chloride 101 mmol/L (98-107); Estimated GFR 9; Globulin 4.8 g/dL (2.4-3.5); Potassium 5.5 mmol/L (3.5-5.1); Protein, Total 7.5 g/dL (6.0-8.3); Sodium 133 mmol/L (136-145)
[2024-10-17] MEDS ORDERED: Morphine 2 MG/ML VIAL ONE ×2 (04:38→06:09)
[2024-10-17 04:46] LABS: Glucose 753 mg/dL (70-105)
[2024-10-17] MEDS ORDERED: Calcium Gluc 4.6 MEQ/10 ML (100 MG/ML) ONE (05:00)
[2024-10-17] MEDS ORDERED: Sodium Bicarb 50 mEq/50 ML VIAL ONE (06:09)
[2024-10-17 07:17] LABS: Anion Gap 14 mmol/L (10-20); BUN (Urea Nitrogen) 33 mg/dL (7.0-18.7); Calc. Creatinine Clearance 0 mL/min (70-130); Calcium 7.9 mg/dL (7.8-10.44); Carbon Dioxide 22 mmol/L (22-29); Chloride 107 mmol/L (98-107); Estimated GFR 9; Potassium 4.2 mmol/L (3.5-5.1); Sodium 139 mmol/L (136-145)
[2024-10-17 07:21] LABS: Glucose 479 mg/dL (70-105)
== END 2024-10-17 08:50 | disposition short-term general hospital (02) ==
LOC: MADERS 03:21
DX: E11.65 Type 2 diabetes mellitus with hyperglycemia (principal); E11.22 Type 2 diabetes mellitus with diabetic chronic kidney disease; N18.9 Chronic kidney disease, unspecified; I12.9 Hypertensive chronic kidney disease with stage 1 through stage 4 chronic kidney disease, or unspecified chronic kidney disease; E87.5 Hyperkalemia; E87.21 Acute metabolic acidosis; F17.210 Nicotine dependence, cigarettes, uncomplicated; Z99.2 Dependence on renal dialysis; Z79.899 Other long term (current) drug therapy; Z79.84 Long term (current) use of oral hypoglycemic drugs; Z79.82 Long term (current) use of aspirin
CPT/HCPCS: 36416; 71045; 80053; 82010; 82330; 82435; 82803; 84132; 84295; 85014; 85025; 93005; 96361; 96365; 96367; 96375; 96376; J0612; J1815; J2272; J2470; J2550

== ENCOUNTER 2024-11-20 00:44 | Emergency (ER) | payer MEDICARE, MEDICAID ==
[2024-11-20] MEDS ORDERED: Famotidine 20 MG TAB ONE (01:36)
[2024-11-20] MEDS ORDERED: HYDROcodone/Acetaminophen 10/325 mg Tablet ONE (01:37)
[2024-11-20 02:55] LABS: Bicarbonate (HCO3v) 18.9 mmol/L (22.0-28.0); CO2 Tension (PvCO2) 42.3 mmHg (42.0-51.0); Calcium, Ionized 0.95 mmol/L (1.15-1.33); Chloride 103 mmol/L (98-107); Hemoglobin - Calc 11.7 g/dL (12.0-16.0); Potassium 4.8 mmol/L (3.5-5.1); Sodium 130 mmol/L (138-145); T. Carbon Dioxide 20.2 mmol/L (22.0-28.0); vO2 Saturation-calc 98.0 % (60.0-85.0)
[2024-11-20 02:58] LABS: #Basophils 0.0 thou/uL (0.0-0.2); #Eosinophils 0.3 thou/uL (0.0-0.7); #Lymphocytes 0.7 thou/uL (1.20-3.40); #Monocytes 0.4 thou/uL (0.11-0.59); #Neutrophils 6.8 thou/uL (1.40-6.50); %Basophils 0.4 % (0.0-1.0); %Eosinophils 3.5 % (0.0-10.0); %Lymphocytes 8.2 % (21.0-51.0); %Monocytes 4.9 % (0.0-10.0); %Neutrophils 83.1 % (42.0-75.0); ALT (SGPT) Less than 7 U/L (Less than 34); AST (SGOT) 8 U/L (11-34); Albumin 2.7 g/dL (3.1-4.5); Alkaline Phosphatase 256 U/L (40-110); Anion Gap 22 mmol/L (10-20); Anisocytosis SLIGHT = 6-15 cells (100X) (0-5/hpf); BUN (Urea Nitrogen) 73 mg/dL (7.0-18.7); Bilirubin, Total 0.2 mg/dL (0.3-1.2); Calc. Creatinine Clearance 0 mL/min (70-130); Calcium 7.4 mg/dL (7.8-10.44); Carbon Dioxide 17 mmol/L (22-29); Chloride 97 mmol/L (98-107); Globulin 4.5 g/dL (2.4-3.5); Hematocrit 34.5 % (36.0-47.0); Hemoglobin 9.8 g/dL (12.0-16.0); MDiff Complete? YES; Mean Corpuscular Hemoglobin 26.1 pg (27.0-31.0); Mean Corpuscular Volume 91.8 fl (78.0-98.0); Microcytosis SLIGHT = 6-15 cells (100X) (0-5/hpf); Platelet Count 459 10x3/uL (130-400); Poikilocytosis SLIGHT = 6-15 cells (100X) (0-5/hpf); Potassium 4.9 mmol/L (3.5-5.1); Red Blood Cell (RBC) Count 3.76 mill/uL (4.20-5.40); Sodium 131 mmol/L (136-145); White Blood Cell (WBC) Count 8.2 10x3/uL (4.8-10.8)
[2024-11-20 03:00] LABS: Glucose 809 mg/dL (70-105)
[2024-11-20] MEDS ORDERED: INSULIN REGULAR IN 0.9 % NACL 100 ML ONE (03:26)
== END 2024-11-20 04:23 | disposition short-term general hospital (02) ==
LOC: MADERS 00:44
DX: E11.10 Type 2 diabetes mellitus with ketoacidosis without coma (principal); I10 Essential (primary) hypertension; Z99.2 Dependence on renal dialysis; F17.210 Nicotine dependence, cigarettes, uncomplicated
CPT/HCPCS: 29505; 36415; 36416; 80053; 82010; 82330; 82435; 82803; 84132; 84295; 85014; 85025; 96365; 96372; 96376; J1815; J2550; J7030

== ENCOUNTER → 2024-11-26 | Emergency (ER) | payer MEDICARE, MEDICAID ==
[~2024-11-26] MED LIST changes: +Bacitracin 1 PK ONE; +Ibuprofen 600 MG TAB ONE; -Iopamidol 370 76% 100 ML VIAL ONE; +Lidocaine 1% (PF) 30 ML VIAL ONE; +NOREPINEPHRINE 8 MG/250 ML-D5W 250 ML ONE
[2024-11-27 00:40] LABS: Anisocytosis MODERATE=16-30 cells (100X) (0-5/hpf); Hematocrit 33.2 % (36.0-47.0); Hemoglobin 10.2 g/dL (12.0-16.0); MDiff Complete? YES; Mean Corpuscular Hemoglobin 26.4 pg (27.0-31.0); Mean Corpuscular Volume 86.5 fl (78.0-98.0); Platelet Adequacy Comment Appears Adequate; Platelet Count 385 10x3/uL (130-400); Red Blood Cell (RBC) Count 3.85 mill/uL (4.20-5.40); White Blood Cell (WBC) Count 14.7 10x3/uL (4.8-10.8)
[2024-11-27 00:43] LABS: Troponin I Less than 0.010 ng/mL (< 0.028)
[2024-11-27 00:45] LABS: ALT (SGPT) Less than 7 U/L (Less than 34); AST (SGOT) 11 U/L (11-34); Albumin 2.3 g/dL (3.1-4.5); Alkaline Phosphatase 138 U/L (40-110); Anion Gap 19 mmol/L (10-20); BUN (Urea Nitrogen) 26 mg/dL (7.0-18.7); Bilirubin, Total 0.2 mg/dL (0.3-1.2); CK (CPK) 29 U/L (29-168); Calc. Creatinine Clearance 0 mL/min (70-130); Calcium 8.3 mg/dL (7.8-10.44); Carbon Dioxide 24 mmol/L (22-29); Chloride 98 mmol/L (98-107); Globulin 4.8 g/dL (2.4-3.5); Glucose 149 mg/dL (70-105); Magnesium 1.7 mg/dL (1.6-2.6); Potassium 4.7 mmol/L (3.5-5.1); Sodium 136 mmol/L (136-145)
== END ==
LOC: MADERS 22:05
DX: A41.9 Sepsis, unspecified organism (principal); R65.21 Severe sepsis with septic shock; I12.9 Hypertensive chronic kidney disease with stage 1 through stage 4 chronic kidney disease, or unspecified chronic kidney disease; N18.9 Chronic kidney disease, unspecified; D64.9 Anemia, unspecified; L89.893 Pressure ulcer of other site, stage 3; L03.116 Cellulitis of left lower limb; E86.0 Dehydration; E11.22 Type 2 diabetes mellitus with diabetic chronic kidney disease; F17.210 Nicotine dependence, cigarettes, uncomplicated; Z79.82 Long term (current) use of aspirin; Z99.2 Dependence on renal dialysis; Z79.899 Other long term (current) drug therapy; Z79.84 Long term (current) use of oral hypoglycemic drugs; Z79.4 Long term (current) use of insulin
CPT/HCPCS: 36556; 70450; 71045; 71250; 72170; 74177; 80053; 82550; 83605; 83735; 83880; 84484; 85025; 85379; 87040; 87081; 87428; 87430; 93005; 96365; 96368; 99292; J2543; J3373

== ENCOUNTER 2025-02-10 14:30 | Emergency (ER) | payer MEDICARE, MEDICAID ==
[2025-02-10] MEDS ORDERED: HYDROcodone/Acetaminophen 5/325 mg Tablet ONE ×2 (14:43→16:15)
== END 2025-02-10 16:32 ==
LOC: MADERS 14:30
DX: S32.401A Unspecified fracture of right acetabulum, initial encounter for closed fracture (principal); S72.402A Unspecified fracture of lower end of left femur, initial encounter for closed fracture; E11.9 Type 2 diabetes mellitus without complications; I10 Essential (primary) hypertension; F17.290 Nicotine dependence, other tobacco product, uncomplicated; W06.XXXA Fall from bed, initial encounter
CPT/HCPCS: 72170; 96372; 99283; J2550

== ENCOUNTER 2025-03-08 22:07 | Outpatient (CLI) | payer MEDICARE, MEDICAID ==
[2025-03-09 18:41] LABS: Follow-up Chemistry Comp? YES; Follow-up Result - Chemistry REPORT FAXED
== END 2025-03-08 22:08 | disposition home or self-care (01) ==
LOC: MADLAB 22:07
PROVIDERS: ATTEND Nurse Practitioner Primary Care
DX: F33.2 Major depressive disorder, recurrent severe without psychotic features (principal); R41.841 Cognitive communication deficit; Z73.6 Limitation of activities due to disability
CPT/HCPCS: 80164

== ENCOUNTER 2025-03-16 15:25 | Outpatient (CLI) | payer MEDICARE, MEDICAID | END 2025-03-16 15:26 | disposition home or self-care (01) | LOC: MADLAB 15:25 | PROVIDERS: ATTEND Nurse Practitioner Primary Care | DX: L97.129 Non-pressure chronic ulcer of left thigh with unspecified severity (principal); M72.6 Necrotizing fasciitis; A41.9 Sepsis, unspecified organism | CPT/HCPCS: 87070; 87077; 87186; 87205 ==

== ENCOUNTER 2025-04-05 00:24 | Emergency (ER) | payer MEDICARE, MEDICAID ==
[2025-04-05] MEDS ORDERED: Acetaminophen 325 MG TAB ONE (01:04)
[2025-04-05 01:53] LABS: Specific Gravity, Urine 1.020 (1.005-1.030)
[2025-04-05 01:54] LABS: Glucose, Urine (Dipstick) 100 mg/dL (Negative); Leukocyte Moderate (Negative); Protein, Urine (Dipstick) > or equal to 300 mg/dL (Neg-Trace)
[2025-04-05 01:55] LABS: Bacteria/HPF 1+ HPF (None Seen); CAUTI Indications for Culture Pelvic or flank pain; Urine Culture Reflex Yes Yes; WBC/HPF Greater than 50 HPF (0-3)
[2025-04-05] MEDS ORDERED: Sulfameth/Trimethoprim DS 800-160mg TAB ONE (02:31)
== END 2025-04-05 03:24 | disposition home or self-care (01) ==
LOC: MADERS 00:24
DX: N39.0 Urinary tract infection, site not specified (principal); R33.9 Retention of urine, unspecified; R15.9 Full incontinence of feces; K64.4 Residual hemorrhoidal skin tags; R11.2 Nausea with vomiting, unspecified; K62.89 Other specified diseases of anus and rectum; E11.22 Type 2 diabetes mellitus with diabetic chronic kidney disease; N18.6 End stage renal disease; I12.0 Hypertensive chronic kidney disease with stage 5 chronic kidney disease or end stage renal disease; F17.210 Nicotine dependence, cigarettes, uncomplicated; Z99.2 Dependence on renal dialysis
CPT/HCPCS: 36416; 51702; 51798; 74176; 81001; 87086; 96372; J2550

== ENCOUNTER 2025-04-07 15:29 | Emergency (ER) | payer MEDICARE, MEDICAID ==
[2025-04-07 17:00] LABS: Glucose, Urine (Dipstick) 500 mg/dL (Negative); Leukocyte Moderate (Negative); Protein, Urine (Dipstick) > or equal to 300 mg/dL (Neg-Trace); Specific Gravity, Urine 1.020 (1.005-1.030)
[2025-04-07 17:05] LABS: Bacteria/HPF 2+ HPF (None Seen); CAUTI Indications for Culture Pelvic or flank pain; RBC/HPF Greater than 50 HPF (0-3); WBC/HPF Greater Than 50 HPF (0-3)
[2025-04-07 17:08] LABS: Urine Culture Reflex Yes Yes
[2025-04-07 17:09] LABS: ALT (SGPT) 9 U/L (Less than 34); AST (SGOT) 15 U/L (11-34); Albumin 3.0 g/dL (3.1-4.5); Alkaline Phosphatase 194 U/L (40-110); Anion Gap 22 mmol/L (10-20); BUN (Urea Nitrogen) 65 mg/dL (7.0-18.7); Bilirubin, Total 0.3 mg/dL (0.3-1.2); Calc. Creatinine Clearance 0 mL/min (70-130); Calcium 7.5 mg/dL (7.8-10.44); Carbon Dioxide 23 mmol/L (22-29); Chloride 99 mmol/L (98-107); Globulin 4.8 g/dL (2.4-3.5); Glucose 366 mg/dL (70-105); Potassium 4.3 mmol/L (3.5-5.1); Sodium 140 mmol/L (136-145)
[2025-04-07 17:12] LABS: Anisocytosis SLIGHT = 6-15 cells (100X) (0-5/hpf); Hematocrit 47.9 % (36.0-47.0); Hemoglobin 13.5 g/dL (12.0-16.0); MDiff Complete? YES; Mean Corpuscular Hemoglobin 22.7 pg (27.0-31.0); Mean Corpuscular Volume 80.9 fl (78.0-98.0); Platelet Adequacy Comment Appears Adequate; Platelet Count 303 10x3/uL (130-400); Red Blood Cell (RBC) Count 5.92 mill/uL (4.20-5.40); White Blood Cell (WBC) Count 7.0 10x3/uL (4.8-10.8)
== END 2025-04-07 19:22 | disposition home or self-care (01) ==
LOC: MADERS 15:29
DX: L89.151 Pressure ulcer of sacral region, stage 1 (principal); L89.152 Pressure ulcer of sacral region, stage 2; R11.0 Nausea; K62.89 Other specified diseases of anus and rectum; I12.0 Hypertensive chronic kidney disease with stage 5 chronic kidney disease or end stage renal disease; E11.22 Type 2 diabetes mellitus with diabetic chronic kidney disease; N18.6 End stage renal disease; F17.210 Nicotine dependence, cigarettes, uncomplicated; Z99.2 Dependence on renal dialysis
CPT/HCPCS: 80053; 81001; 85025; 87086; J2270; 36415; 96372; 99284

== ENCOUNTER 2025-04-12 22:57 | Emergency (ER) | payer MEDICARE, MEDICAID ==
[2025-04-12 23:51] LABS: Anisocytosis SLIGHT = 6-15 cells (100X) (0-5/hpf); Hematocrit 41.9 % (36.0-47.0); Hemoglobin 11.9 g/dL (12.0-16.0); MDiff Complete? YES; Mean Corpuscular Hemoglobin 22.6 pg (27.0-31.0); Mean Corpuscular Volume 79.8 fl (78.0-98.0); Microcytosis SLIGHT = 6-15 cells (100X) (0-5/hpf); Platelet Count 282 10x3/uL (130-400); Poikilocytosis SLIGHT = 6-15 cells (100X) (0-5/hpf); Red Blood Cell (RBC) Count 5.26 mill/uL (4.20-5.40); White Blood Cell (WBC) Count 8.7 10x3/uL (4.8-10.8)
[2025-04-12 23:56] LABS: Bicarbonate (HCO3v) 16.7 mmol/L (22.0-28.0); CO2 Tension (PvCO2) 35.2 mmHg (42.0-51.0); Calcium, Ionized 0.91 mmol/L (1.15-1.33); Chloride 107 mmol/L (98-107); Hemoglobin - Calc 13.8 g/dL (12.0-16.0); Potassium 5.4 mmol/L (3.5-5.1); Sodium 134 mmol/L (138-145); T. Carbon Dioxide 17.8 mmol/L (22.0-28.0); vO2 Saturation-calc 99.1 % (60.0-85.0)
[2025-04-12 23:57] LABS: ALT (SGPT) 11 U/L (Less than 34); AST (SGOT) 11 U/L (11-34); Albumin 2.7 g/dL (3.1-4.5); Alkaline Phosphatase 141 U/L (40-110); Anion Gap 25 mmol/L (10-20); BUN (Urea Nitrogen) 89 mg/dL (7.0-18.7); Bilirubin, Total 0.3 mg/dL (0.3-1.2); Calc. Creatinine Clearance 0 mL/min (70-130); Carbon Dioxide 13 mmol/L (22-29); Chloride 102 mmol/L (98-107); Globulin 4.8 g/dL (2.4-3.5); Lipase 288 U/L (8-78); Potassium 5.5 mmol/L (3.5-5.1); Sodium 134 mmol/L (136-145)
[2025-04-12 23:58] LABS: Troponin I 0.021 ng/mL (< 0.028)
[2025-04-12 23:59] LABS: Glucose, Urine (Dipstick) >=1000 mg/dL (Negative); Leukocyte Trace (Negative); Protein, Urine (Dipstick) > or equal to 300 mg/dL (Neg-Trace); Specific Gravity, Urine 1.015 (1.005-1.030)
[2025-04-12 23:59] LABS: Calcium 6.8 mg/dL (7.8-10.44); Glucose 526 mg/dL (70-105)
[2025-04-13 00:02] LABS: Bacteria/HPF Rare-Few HPF (None Seen); CAUTI Indications for Culture Pelvic or flank pain; Urine Culture Reflex Yes Yes; WBC/HPF Greater than 50 HPF (0-3)
[2025-04-13] MEDS ORDERED: INSULIN REGULAR IN 0.9 % NACL 100 ML ONE (00:27)
== END 2025-04-13 01:01 | disposition short-term general hospital (02) ==
LOC: MADERS 22:57
DX: E11.10 Type 2 diabetes mellitus with ketoacidosis without coma (principal); I12.0 Hypertensive chronic kidney disease with stage 5 chronic kidney disease or end stage renal disease; E11.22 Type 2 diabetes mellitus with diabetic chronic kidney disease; N18.6 End stage renal disease; F17.210 Nicotine dependence, cigarettes, uncomplicated; Z99.2 Dependence on renal dialysis
CPT/HCPCS: 36416; 51702; 71045; 80053; 81001; 82330; 82435; 82803; 83605; 83690; 84100; 84132; 84295; 84484; 85014; 85025; 87077; 87086; 93005; 96365; 96375; 96376; J1815; J2272; J2550

== ENCOUNTER 2025-04-15 20:44 | Emergency (ER) | payer MEDICARE, MEDICAID ==
[2025-04-16 04:05] LABS: Specific Gravity, Urine 1.015 (1.005-1.030)
[2025-04-16 04:06] LABS: Glucose, Urine (Dipstick) 500 mg/dL (Negative); Leukocyte Large (Negative); Protein, Urine (Dipstick) > or equal to 300 mg/dL (Neg-Trace)
[2025-04-16 04:07] LABS: Bacteria/HPF 3+ HPF (None Seen); CAUTI Indications for Culture Dysuria,urgency,freq
[2025-04-16 04:08] LABS: Urine Culture Reflex No No
== END 2025-04-16 05:36 | disposition home or self-care (01) ==
LOC: MADERS 20:44
DX: K81.0 Acute cholecystitis (principal); N30.00 Acute cystitis without hematuria; N10 Acute pyelonephritis; I12.0 Hypertensive chronic kidney disease with stage 5 chronic kidney disease or end stage renal disease; E11.22 Type 2 diabetes mellitus with diabetic chronic kidney disease; N18.6 End stage renal disease; E86.0 Dehydration; F17.210 Nicotine dependence, cigarettes, uncomplicated; F17.220 Nicotine dependence, chewing tobacco, uncomplicated; Z99.2 Dependence on renal dialysis
CPT/HCPCS: 74176; 81001; J0692; J2270 ×2; J2550 ×2; 96372